=== PATIENT | female | born 1990 | race Caucasian/White ===

== ENCOUNTER → 2020-10-30 07:53 | Outpatient (BNVA) | payer OTHER, SELFPAY | PROVIDERS: Visit Provider Physician Assistant | DX: M77.12 Lateral epicondylitis, left elbow (principal) | CPT/HCPCS: 20551; 99202; J1020 ==

== ENCOUNTER 2020-11-13 09:00 | Outpatient (RCR) | payer OTHER, SELFPAY ==
--- NOTE | 2020-11-28 13:18 | MHC.OT.DC ---
[address] [phone] F: [phone] Occupational Therapy Discharge Note Provider: Marlin Means PA-C Diagnosis: Left elbow tendinopathy/radial tunnel syndrome Date of Evaluation: 11/06/20 Date of Discharge: 11/28/20 Treatments to Date: 2 Cancellations to Date: 1 No Shows to Date: 3 Discharge Status: Patient Elected to Stop Discharge Summary: Melly was seen in OT for initial assessment of left elbow pain, consistent w/ radial tunnel syndrome and possible upper limb nerve injury. She was given HEP and returned for one follow up visit reporting less pain today and demo'd good ROM through nerve glides. She has missed several appointments and we will be discharging at this time in accordance to our no-show/cancellation policy. Electronically Signed By: Vickie Serna OTR/L Reviewed/agree with student documentation: N/A Therapist: Please Sign and return to therapist, thank you for your referral.
== END 2020-11-28 13:19 | disposition home or self-care (01) ==
LOC: HO.OT 09:00
PROVIDERS: Visit Provider Physician Assistant
DX: M77.12 Lateral epicondylitis, left elbow (principal)
CPT/HCPCS: 97110; 97140; 97166

== ENCOUNTER 2022-02-06 11:41 | Emergency (ER) | payer OTHER, SELFPAY ==
[2022-02-06 12:02] VITALS: BP 145/97; PULSE 84; RESP 20; TEMP 36.7; O2SAT 100; BMI 20.9
--- NOTE | 2022-02-06 12:07 | ED.GENADULT ---
HPI - General Adult General Chief complaint: Abdominal Pain <JOEY Irvin Last Filed: 02/10/22 11:55> Stated complaint: abd pain, nauseous, dizzy <JOEY Irvin - Last Filed: 02/10/22 11:55> Time Seen by Provider: 02/06/22 16:37 <JOEY Irvin - Last Filed: 02/10/22 11:55> Source: patient and family <JOEY Amaya Last Filed: 02/06/22 16:47> Mode of arrival: ambulatory <JOEY Amaya - Last Filed: 02/06/22 16:47> Limitations: no limitations <JOEY Amaya Last Filed: 02/06/22 16:47> History of Present Illness HPI narrative: 32-year-old female with a past medical history of kidney stones presenting to the ED with nausea and lower abdominal cramping for the past 2-3 days worse today. Reports that she only had her menstrual period for 2 days and was light. She believes she may be . She denies any other symptoms complaints or concerns at this time. <JOEY Amaya - Last Filed: 02/06/22 16:47> MD complaint: Nausea and abdominal pain <JOEY Amaya Last Filed: 02/06/22 16:47> Onset (ago): day(s) ( 2 days) <JOEY Amaya Last Filed: 02/06/22 16:47> Related Data Home medications: Previous Rx's Medication Instructions Recorded docusate sodium 100 mg capsule 100 mg PO BID PRN Constipation #14 02/06/22 (Colace) caps ondansetron HCl 4 mg tablet 4 mg PO Q8H #14 tabs 02/06/22 polyethylene glycol 3350 17 gram 17 g PO DAILY #14 ea 02/06/22 oral powder packet (Miralax) <JOEY Irvin Last Filed: 02/10/22 11:55> Allergies/adverse reactions: Allergies Allergy/AdvReac Type Severity Reaction Status Date / Time divalproex sodium Allergy Intermediate SEVERE Unverified 11/03/19 18:35 [From DEPAKOTE] HEADACHE adhesive tape [ADHESIVE TAPE] Allergy Unknown RASH Unverified 11/03/19 18:35 lactose [LACTOSE] Allergy Unknown DIARRHEA Unverified 11/03/19 18:35 morphine [MORPHINE] Allergy Unknown GI UPSET Unverified 11/03/19 18:35 Adhesive Bandages Allergy Unknown Uncoded 10/15/17 00:00 <JOEY Irvin - Last Filed: 02/10/22 11:55> Review of Systems Review of Systems: Constitutional : No Weight loss, No Fever, No Chills, No Night Sweats, No Fatigue, No Malaise ENT/Mouth : No Hearing loss, No Ear Pain, No Nasal Congestion, No Sinus Pain, No Hoarseness, No sore throat, No Rhinorrhea, No Swallowing Difficulty Eyes: No Eye Pain, No Swelling, No Redness, No Foreign Body, No Discharge, No Vision Changes Cardiovascular : No Chest Pain, No SOB, No Dyspnea on Exertion, No Orthopnea, No Edema, No Palpitations Respiratory : No Cough, No Sputum, No Wheezing, No Smoke Exposure, No Dyspnea Gastrointestinal : + Nausea, No Vomiting, No Diarrhea, No Constipation, + abdominal Pain, No Hematochezia, No Melena Genitourinary : no irregular bleeding, No Dysuria, No Urinary Frequency, No Hematuria, No Urinary Incontinence, No Urgency, No Flank Pain, No Urinary Flow Changes, No Hesitancy Musculoskeletal : No joint pain, No Myalgias, No Joint Swelling Skin : No Skin Lesions, No rash Neuro : No Weakness, No Numbness, No Paresthesias, No Loss of Consciousness, No Dizziness, No Headache Psych : No Anxiety/Panic, No Depression, No SI/HI/AH/VH, No Social Issues, Heme/Lymph: No Bruising, No Bleeding,No Lymphadenopathy Endocrine : No Polyuria, No Polydipsia, No Temperature Intolerance <JOEY Amaya - Last Filed: 02/06/22 16:47> Yes all other systems are reviewed and are negative <JOEY Amaya Last Filed: 02/06/22 16:47> [facility] Past Medical History Attestation statement: The following information was validated with the patient. 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 <JOEY Irvin - Last Filed: 02/10/22 11:55> Physical Exam ED Vital Signs: Vital Signs - 24 hr 02/06/22 12:02 Temperature 98.1 F Pulse Rate 84 Respiratory Rate 20 Blood Pressure 145/97 H Pulse Oximetry 100 Oxygen Delivery Method Room Air BMI result Body Mass Index 20.9 <JOEY Irvin - Last Filed: 02/10/22 11:55> Vital Signs - 24 hr 02/06/22 12:02 Temperature 98.1 F Pulse Rate 84 Respiratory Rate 20 Blood Pressure 145/97 H Pulse Oximetry 100 Oxygen Delivery Method Room Air BMI result Body Mass Index 20.9 Vital signs have been reviewed and all within normal limits <JOEY Amaya - Last Filed: 02/06/22 16:47> Appearance: Alert. Oriented X3. No acute distress. Head: Normal external exam. Normocephalic. Eyes: PERRLA. EOMI. Conjunctiva and sclera normal. Eyelids normal. ENT: Pharynx normal. Uvula midline. Moist mucous membranes. No trismus noted. No drooling noted. No muffled voice noted. Neck: Normal inspection. Neck supple. FROM. No adenopathy. No meningeal signs. CVS: Normal heart rate and rhythm. Heart sound normal. No murmurs noted. Pulses normal throughout. Respiratory: No respiratory distress. Painless inspiration. Breath sounds normal. No wheezes/rales/rhonchi noted. Chest nontender. No accessory muscle usage noted or decreased air movement noted. Abdomen: Soft and and mild tenderness palpation to suprapubic area. Nondistended. No guarding. No rigidity. Bowel sounds normal in all 4 quadrants. No distention noted. No organomegaly noted. No visible injury noted. No rebound tenderness. Negative Rovsing sign. Negative obturator's sign. Negative psoas sign. Negative Chandra sign. Back: No CVA tenderness. Full range of motion noted. Skin: Skin warm and dry. Normal skin color. Normal skin turgor. No rashes/lesions/lacerations noted. Extremities: Extremities exhibit normal range of motion. Extremities nontender. Neuro: Oriented X 3. No motor deficit. No sensory deficit. Reflexes normal. Normal steady gait. CN's II-XII intact bilaterally? <JOEY Amaya - Last Filed: 02/06/22 16:47> Course Course Course Narrative: RMAlec; 32 female presents to the ED for lower abdominal cramping with nausea. Patient states she had only 2 days of bleeding. Patient states in the morning feeling nauseous. Patient believes she may be . Vital signs stable. labs ordered. <JOEY Irvin - Last Filed: 02/10/22 11:55> Reevaluation(s) Reevaluation #1: Labs obtained and all labs within normal limits. Patient negative for by blood and urine. UA within normal limits no evidence of UTI. Patient negative for COVID/RSV/ flu. CT scan show kidney stones although still in the kidneys therefore this is not causing the patient's pain and some mild constipation otherwise no other acute processes. Therefore will DC home with symptomatic treatment instructions return if any new or worsening symptoms follow up with primary care provider. Patient understands agrees with this plan. <JOEY Amaya - Last Filed: 02/06/22 16:47> Time: 16:46 <JOEY Amaya - Last Filed: 02/06/22 16:47> Medical Decision Making Lab Data MDM Lab Attestation statement: I reviewed the patient's lab results. <JOEY Amaya - Last Filed: 02/06/22 16:47> Result Diagrams: : 02/06/22 12:28 02/06/22 12:28 <JOEY Irvin - Last Filed: 02/10/22 11:55> Labs: Lab Results 02/06/22 02/06/22 02/06/22 Range/Units 12:28 12:28 12:28 WBC 8.4 (4.8-10.8) X10*3/uL RBC 4.24 (4.20-5.50) X10*6/uL Hgb 13.1 (12.0-16.0) g/dl Hct 40.2 (37.0-47.0) % MCV 94.8 (80.0-98.0) fL MCH 30.9 (27.0-33.0) pg MCHC 32.6 (31.0-35.0) g/dl RDW 13.6 (11.0-16.0) % Plt Count 261 (160-400) X10*3/uL MPV 9.9 (9.4-12.3) fL Immature Gran % (Auto) 0.4 (0.0-0.4) % Neut % (Auto) 65.1 (45-73) % Lymph % (Auto) 25.1 (20-40) % Love % (Auto) 7.2 (2-11) % Eos % (Auto) 1.7 (0-4) % Baso % (Auto) 0.5 (0-2) % Lymph # (Auto) 2.1 (1.2-4.9) X10*3/uL Love # (Auto) 0.6 (0.1-1.2) X10*3/uL Eos # (Auto) 0.1 (0.0-0.4) X10*3/uL Baso # (Auto) 0.0 (0.0-0.2) X10*3/uL Abs Immat Gran (auto) 0.03 (0.00-0.03) X10*3/uL Absolute Neuts (auto) 5.5 (2.0-8.3) x10*3/uL Absolute Nucleated RBC 0.000 (0.0-0.012) X10*3/uL Nucleated RBC % (auto) 0.0 (0.0-0.2) /100WBC PT 11.0 (10.0-13.1) SEC INR 1.0 (0.9-1.1) APTT 29.9 (26.0-36.4) SEC Sodium 140 (135-145) mmol/L Potassium 3.8 (3.3-5.1) mmol/L Chloride 104 (96-108) mmol/L Carbon Dioxide 26 (22-29) mmol/L Anion Gap 14 (12-20) BUN 16 (9-16) mg/dL Creatinine 0.75 (0.5-1.4) mg/dL Estim Creat Clear Calc 100.2 Estimated GFR > 60 Random Glucose 69 (60-115) mg/dL Calcium 9.6 (8.4-10.2) mg/dL Total Bilirubin 0.3 (0.0-1.0) mg/dL AST 16 (5-31) U/L ALT 19 (0-31) U/L Alkaline Phosphatase 53 (39-117) U/L Total Protein 7.0 (6.5-8.0) g/dL Albumin 4.2 (3.5-5.0) g/dL Beta HCG, Quant < 2 mIU/mL Urine Color Urine Appearance Urine pH (5.0-9.0) Ur Specific [place] (1.005-1.025) Urine Protein (Neg-Trace) mg/dL Urine Glucose (UA) (Negative) mg/dL Urine Ketones (Negative) mg/dL Urine Blood (Negative) Urine Nitrite (Negative) Ur Leukocyte Esterase (Negative) Urine Test (NEGATIVE) Influenza Type A (PCR) (Negative) Influenza Type B (PCR) (Negative) RSV RNA Qual (PCR) (Negative) SARS-CoV-2 RNA (RT-PCR) (Negative) Blood Type 02/06/22 02/06/22 02/06/22 Range/Units 12:28 12:28 15:45 WBC (4.8-10.8) X10*3/uL RBC (4.20-5.50) X10*6/uL Hgb (12.0-16.0) g/dl Hct (37.0-47.0) % MCV (80.0-98.0) fL MCH (27.0-33.0) pg MCHC (31.0-35.0) g/dl RDW (11.0-16.0) % Plt Count (160-400) X10*3/uL MPV (9.4-12.3) fL Immature Gran % (Auto) (0.0-0.4) % Neut % (Auto) (45-73) % Lymph % (Auto) (20-40) % Love % (Auto) (2-11) % Eos % (Auto) (0-4) % Baso % (Auto) (0-2) % Lymph # (Auto) (1.2-4.9) X10*3/uL Love # (Auto) (0.1-1.2) X10*3/uL Eos # (Auto) (0.0-0.4) X10*3/uL Baso # (Auto) (0.0-0.2) X10*3/uL Abs Immat Gran (auto) (0.00-0.03) X10*3/uL Absolute Neuts (auto) (2.0-8.3) x10*3/uL Absolute Nucleated RBC (0.0-0.012) X10*3/uL Nucleated RBC % (auto) (0.0-0.2) /100WBC PT (10.0-13.1) SEC INR (0.9-1.1) APTT (26.0-36.4) SEC Sodium (135-145) mmol/L Potassium (3.3-5.1) mmol/L Chloride (96-108) mmol/L Carbon Dioxide (22-29) mmol/L Anion Gap (12-20) BUN (9-16) mg/dL Creatinine (0.5-1.4) mg/dL Estim Creat Clear Calc Estimated GFR Random Glucose (60-115) mg/dL Calcium (8.4-10.2) mg/dL Total Bilirubin (0.0-1.0) mg/dL AST (5-31) U/L ALT (0-31) U/L Alkaline Phosphatase (39-117) U/L Total Protein (6.5-8.0) g/dL Albumin (3.5-5.0) g/dL Beta HCG, Quant mIU/mL Urine Color Yellow Urine Appearance Clear Urine pH 7.0 (5.0-9.0) Ur Specific [place] 1.010 (1.005-1.025) Urine Protein Negative (Neg-Trace) mg/dL Urine Glucose (UA) Negative (Negative) mg/dL Urine Ketones Negative (Negative) mg/dL Urine Blood Negative (Negative) Urine Nitrite Negative (Negative) Ur Leukocyte Esterase Negative (Negative) Urine Test (NEGATIVE) Influenza Type A (PCR) NEGATIVE (Negative) Influenza Type B (PCR) NEGATIVE (Negative) RSV RNA Qual (PCR) NEGATIVE (Negative) SARS-CoV-2 RNA (RT-PCR) NEGATIVE (Negative) Blood Type A Positive 02/06/22 Range/Units 15:45 WBC (4.8-10.8) X10*3/uL RBC (4.20-5.50) X10*6/uL Hgb (12.0-16.0) g/dl Hct (37.0-47.0) % MCV (80.0-98.0) fL MCH (27.0-33.0) pg MCHC (31.0-35.0) g/dl RDW (11.0-16.0) % Plt Count (160-400) X10*3/uL MPV (9.4-12.3) fL Immature Gran % (Auto) (0.0-0.4) % Neut % (Auto) (45-73) % Lymph % (Auto) (20-40) % Love % (Auto) (2-11) % Eos % (Auto) (0-4) % Baso % (Auto) (0-2) % Lymph # (Auto) (1.2-4.9) X10*3/uL Love # (Auto) (0.1-1.2) X10*3/uL Eos # (Auto) (0.0-0.4) X10*3/uL Baso # (Auto) (0.0-0.2) X10*3/uL Abs Immat Gran (auto) (0.00-0.03) X10*3/uL Absolute Neuts (auto) (2.0-8.3) x10*3/uL Absolute Nucleated RBC (0.0-0.012) X10*3/uL Nucleated RBC % (auto) (0.0-0.2) /100WBC PT (10.0-13.1) SEC INR (0.9-1.1) APTT (26.0-36.4) SEC Sodium (135-145) mmol/L Potassium (3.3-5.1) mmol/L Chloride (96-108) mmol/L Carbon Dioxide (22-29) mmol/L Anion Gap (12-20) BUN (9-16) mg/dL Creatinine (0.5-1.4) mg/dL Estim Creat Clear Calc Estimated GFR Random Glucose (60-115) mg/dL Calcium (8.4-10.2) mg/dL Total Bilirubin (0.0-1.0) mg/dL AST (5-31) U/L ALT (0-31) U/L Alkaline Phosphatase (39-117) U/L Total Protein (6.5-8.0) g/dL Albumin (3.5-5.0) g/dL Beta HCG, Quant mIU/mL Urine Color Urine Appearance Urine pH (5.0-9.0) Ur Specific [place] (1.005-1.025) Urine Protein (Neg-Trace) mg/dL Urine Glucose (UA) (Negative) mg/dL Urine Ketones (Negative) mg/dL Urine Blood (Negative) Urine Nitrite (Negative) Ur Leukocyte Esterase (Negative) Urine Test NEGATIVE (NEGATIVE) Influenza Type A (PCR) (Negative) Influenza Type B (PCR) (Negative) RSV RNA Qual (PCR) (Negative) SARS-CoV-2 RNA (RT-PCR) (Negative) Blood Type <JOEY Ivrin - Last Filed: 02/10/22 11:55> Lab Results 02/06/22 02/06/22 02/06/22 Range/Units 12:28 12:28 12:28 WBC 8.4 (4.8-10.8) X10*3/uL RBC 4.24 (4.20-5.50) X10*6/uL Hgb 13.1 (12.0-16.0) g/dl Hct 40.2 (37.0-47.0) % MCV 94.8 (80.0-98.0) fL MCH 30.9 (27.0-33.0) pg MCHC 32.6 (31.0-35.0) g/dl RDW 13.6 (11.0-16.0) % Plt Count 261 (160-400) X10*3/uL MPV 9.9 (9.4-12.3) fL Immature Gran % (Auto) 0.4 (0.0-0.4) % Neut % (Auto) 65.1 (45-73) % Lymph % (Auto) 25.1 (20-40) % Love % (Auto) 7.2 (2-11) % Eos % (Auto) 1.7 (0-4) % Baso % (Auto) 0.5 (0-2) % Lymph # (Auto) 2.1 (1.2-4.9) X10*3/uL Love # (Auto) 0.6 (0.1-1.2) X10*3/uL Eos # (Auto) 0.1 (0.0-0.4) X10*3/uL Baso # (Auto) 0.0 (0.0-0.2) X10*3/uL Abs Immat Gran (auto) 0.03 (0.00-0.03) X10*3/uL Absolute Neuts (auto) 5.5 (2.0-8.3) x10*3/uL Absolute Nucleated RBC 0.000 (0.0-0.012) X10*3/uL Nucleated RBC % (auto) 0.0 (0.0-0.2) /100WBC PT 11.0 (10.0-13.1) SEC INR 1.0 (0.9-1.1) APTT 29.9 (26.0-36.4) SEC Sodium 140 (135-145) mmol/L Potassium 3.8 (3.3-5.1) mmol/L Chloride 104 (96-108) mmol/L Carbon Dioxide 26 (22-29) mmol/L Anion Gap 14 (12-20) BUN 16 (9-16) mg/dL Creatinine 0.75 (0.5-1.4) mg/dL Estim Creat Clear Calc 100.2 Estimated GFR > 60 Random Glucose 69 (60-115) mg/dL Calcium 9.6 (8.4-10.2) mg/dL Total Bilirubin 0.3 (0.0-1.0) mg/dL AST 16 (5-31) U/L ALT 19 (0-31) U/L Alkaline Phosphatase 53 (39-117) U/L Total Protein 7.0 (6.5-8.0) g/dL Albumin 4.2 (3.5-5.0) g/dL Beta HCG, Quant < 2 mIU/mL Urine Color Urine Appearance Urine pH (5.0-9.0) Ur Specific [place] (1.005-1.025) Urine Protein (Neg-Trace) mg/dL Urine Glucose (UA) (Negative) mg/dL Urine Ketones (Negative) mg/dL Urine Blood (Negative) Urine Nitrite (Negative) Ur Leukocyte Esterase (Negative) Urine Test (NEGATIVE) Influenza Type A (PCR) (Negative) Influenza Type B (PCR) (Negative) RSV RNA Qual (PCR) (Negative) SARS-CoV-2 RNA (RT-PCR) (Negative) Blood Type 02/06/22 02/06/22 02/06/22 Range/Units 12:28 12:28 15:45 WBC (4.8-10.8) X10*3/uL RBC (4.20-5.50) X10*6/uL Hgb (12.0-16.0) g/dl Hct (37.0-47.0) % MCV (80.0-98.0) fL MCH (27.0-33.0) pg MCHC (31.0-35.0) g/dl RDW (11.0-16.0) % Plt Count (160-400) X10*3/uL MPV (9.4-12.3) fL Immature Gran % (Auto) (0.0-0.4) % Neut % (Auto) (45-73) % Lymph % (Auto) (20-40) % Love % (Auto) (2-11) % Eos % (Auto) (0-4) % Baso % (Auto) (0-2) % Lymph # (Auto) (1.2-4.9) X10*3/uL Love # (Auto) (0.1-1.2) X10*3/uL Eos # (Auto) (0.0-0.4) X10*3/uL Baso # (Auto) (0.0-0.2) X10*3/uL Abs Immat Gran (auto) (0.00-0.03) X10*3/uL Absolute Neuts (auto) (2.0-8.3) x10*3/uL Absolute Nucleated RBC (0.0-0.012) X10*3/uL Nucleated RBC % (auto) (0.0-0.2) /100WBC PT (10.0-13.1) SEC INR (0.9-1.1) APTT (26.0-36.4) SEC Sodium (135-145) mmol/L Potassium (3.3-5.1) mmol/L Chloride (96-108) mmol/L Carbon Dioxide (22-29) mmol/L Anion Gap (12-20) BUN (9-16) mg/dL Creatinine (0.5-1.4) mg/dL Estim Creat Clear Calc Estimated GFR Random Glucose (60-115) mg/dL Calcium (8.4-10.2) mg/dL Total Bilirubin (0.0-1.0) mg/dL AST (5-31) U/L ALT (0-31) U/L Alkaline Phosphatase (39-117) U/L Total Protein (6.5-8.0) g/dL Albumin (3.5-5.0) g/dL Beta HCG, Quant mIU/mL Urine Color Yellow Urine Appearance Clear Urine pH 7.0 (5.0-9.0) Ur Specific [place] 1.010 (1.005-1.025) Urine Protein Negative (Neg-Trace) mg/dL Urine Glucose (UA) Negative (Negative) mg/dL Urine Ketones Negative (Negative) mg/dL Urine Blood Negative (Negative) Urine Nitrite Negative (Negative) Ur Leukocyte Esterase Negative (Negative) Urine Test (NEGATIVE) Influenza Type A (PCR) NEGATIVE (Negative) Influenza Type B (PCR) NEGATIVE (Negative) RSV RNA Qual (PCR) NEGATIVE (Negative) SARS-CoV-2 RNA (RT-PCR) NEGATIVE (Negative) Blood Type A Positive 02/06/22 Range/Units 15:45 WBC (4.8-10.8) X10*3/uL RBC (4.20-5.50) X10*6/uL Hgb (12.0-16.0) g/dl Hct (37.0-47.0) % MCV (80.0-98.0) fL MCH (27.0-33.0) pg MCHC (31.0-35.0) g/dl RDW (11.0-16.0) % Plt Count (160-400) X10*3/uL MPV (9.4-12.3) fL Immature Gran % (Auto) (0.0-0.4) % Neut % (Auto) (45-73) % Lymph % (Auto) (20-40) % Love % (Auto) (2-11) % Eos % (Auto) (0-4) % Baso % (Auto) (0-2) % Lymph # (Auto) (1.2-4.9) X10*3/uL Love # (Auto) (0.1-1.2) X10*3/uL Eos # (Auto) (0.0-0.4) X10*3/uL Baso # (Auto) (0.0-0.2) X10*3/uL Abs Immat Gran (auto) (0.00-0.03) X10*3/uL Absolute Neuts (auto) (2.0-8.3) x10*3/uL Absolute Nucleated RBC (0.0-0.012) X10*3/uL Nucleated RBC % (auto) (0.0-0.2) /100WBC PT (10.0-13.1) SEC INR (0.9-1.1) APTT (26.0-36.4) SEC Sodium (135-145) mmol/L Potassium (3.3-5.1) mmol/L Chloride (96-108) mmol/L Carbon Dioxide (22-29) mmol/L Anion Gap (12-20) BUN (9-16) mg/dL Creatinine (0.5-1.4) mg/dL Estim Creat Clear Calc Estimated GFR Random Glucose (60-115) mg/dL Calcium (8.4-10.2) mg/dL Total Bilirubin (0.0-1.0) mg/dL AST (5-31) U/L ALT (0-31) U/L Alkaline Phosphatase (39-117) U/L Total Protein (6.5-8.0) g/dL Albumin (3.5-5.0) g/dL Beta HCG, Quant mIU/mL Urine Color Urine Appearance Urine pH (5.0-9.0) Ur Specific [place] (1.005-1.025) Urine Protein (Neg-Trace) mg/dL Urine Glucose (UA) (Negative) mg/dL Urine Ketones (Negative) mg/dL Urine Blood (Negative) Urine Nitrite (Negative) Ur Leukocyte Esterase (Negative) Urine Test NEGATIVE (NEGATIVE) Influenza Type A (PCR) (Negative) Influenza Type B (PCR) (Negative) RSV RNA Qual (PCR) (Negative) SARS-CoV-2 RNA (RT-PCR) (Negative) Blood Type <JOEY Amaya Last Filed: 02/06/22 16:47> Independent Interpretation Interpretation: CT scan abdomen pelvis without IV contrast FINDINGS: LUNG BASES: The visualized lung bases are unremarkable.? LIVER, GALLBLADDER, AND BILIARY TREE: No hepatic abnormality. Status post cholecystectomy. PANCREAS: Unremarkable.? SPLEEN: Unremarkable.? ADRENAL GLANDS: Unremarkable.? KIDNEYS AND URETERS: Punctate nonobstructing intrarenal calculi are seen bilaterally. No hydroureteronephrosis. BLADDER: Unremarkable.? GASTROINTESTINAL TRACT: The stomach and small bowel are unremarkable. The cecum extends inferomedially into the inferior pelvis positioned and it superior to the urinary bladder. Surgical clips are seen at the cecal base without abnormality. The appendix is not visualized. Mild to moderate stool seen throughout the colon distally to the rectum, more pronounced proximally. ABDOMINAL WALL: No significant hernia is appreciated.? LYMPH NODES: No lymphadenopathy. VASCULAR: Unremarkable. PELVIC VISCERA: Mildly retroverted as well as retroflexed uterus. No adnexal abnormality.? OSSEOUS STRUCTURES: Unremarkable.? CT/CT abdomen pelvis wo IV con IMPRESSION: 1.? No acute intra-abdominal/pelvic abnormality to explain the patient's symptoms. 2.? Mild to moderate colonic stool burden without other significant abnormality. Correlate with stool output. 3.? Punctate nonobstructing intrarenal calculi bilaterally. ? ? ? <JOEY Amaya - Last Filed: 02/06/22 16:47> Discharge Plan Discharge Clinical Impression: Constipation, Nausea <JOEY Irvin Last Filed: 02/10/22 11:55> Patient Disposition: Home, Self-Care <JOEY Irvin Last Filed: 02/10/22 11:55> Instructions: Constipation (ED) <JOEY Irvin Last Filed: 02/10/22 11:55> Prescriptions: New ondansetron HCl 4 mg tablet 4 mg PO Q8H Qty: 14 0RF docusate sodium [Colace] 100 mg capsule 100 mg PO BID PRN (Reason: Constipation) Qty: 14 0RF polyethylene glycol 3350 [Miralax] 17 gram powder in packet 17 g PO DAILY Qty: 14 0RF <JOEY Irvin - Last Filed: 02/10/22 11:55> Referrals: Physician,Unknown J [Primary Care Provider] - ( follow-up with her primary care provider as needed) <JOEY Irvin - Last Filed: 02/10/22 11:55> Interventions: ED Discharge Assessment Last Done: 02/06/22 16:48 <JOEY Irvin - Last Filed: 02/10/22 11:55> Discharge Date/Time: 02/06/22 16:49 <JOEY Irvin - Last Filed: 02/10/22 11:55>
[2022-02-06 12:40] LABS: MANUAL DIFF FLAG NO
[2022-02-06 12:42] LABS: Basophils Percent Auto 0.5 % (0-2); Eosinophils Absolute Auto 0.1 X10*3/uL (0.0-0.4); Eosinophils Percent Auto 1.7 % (0-4); Hematocrit 40.2 % (37.0-47.0); Hemoglobin 13.1 g/dl (12.0-16.0); Imm Gran Abs Auto 0.03 X10*3/uL (0.00-0.03); Imm Gran Pct Auto 0.4 % (0.0-0.4); Lymphocytes Absolute Auto 2.1 X10*3/uL (1.2-4.9); Lymphocytes Percent Auto 25.1 % (20-40); Mean Corpuscular HGB Conc 32.6 g/dl (31.0-35.0); Mean Corpuscular Hemoglobin 30.9 pg (27.0-33.0); Mean Corpuscular Volume 94.8 fL (80.0-98.0); Mean Platelet Volume 9.9 fL (9.4-12.3); Monocytes Absolute Auto 0.6 X10*3/uL (0.1-1.2); Monocytes Percent Auto 7.2 % (2-11); Neutrophils Absolute Auto 5.5 x10*3/uL (2.0-8.3); Neutrophils Percent Auto 65.1 % (45-73); Platelet Count 261 X10*3/uL (160-400); Red Blood Count 4.24 X10*6/uL (4.20-5.50); Red Cell Distribution Width 13.6 % (11.0-16.0); White Blood Count 8.4 X10*3/uL (4.8-10.8)
[2022-02-06 12:50] LABS: Partial Thromboplastin Time 29.9 SEC (26.0-36.4)
[2022-02-06 13:11] LABS: Alanine Aminotransferase 19 U/L (0-31); Albumin Level 4.2 g/dL (3.5-5.0); Alkaline Phosphatase 53 U/L (39-117); Anion Gap 14 (12-20); Aspartate Amino Transferase 16 U/L (5-31); Bilirubin Total 0.3 mg/dL (0.0-1.0); Blood Urea Nitrogen 16 mg/dL (9-16); Calcium 9.6 mg/dL (8.4-10.2); Carbon Dioxide 26 mmol/L (22-29); Chloride 104 mmol/L (96-108); Creatinine Clr Calc Pharmacy 100.2; Estimated Glomerular Filt Rate > 60; Glucose Random 69 mg/dL (60-115); HCG Quantitative < 2 mIU/mL; Potassium 3.8 mmol/L (3.3-5.1); Sodium 140 mmol/L (135-145)
[2022-02-06 13:20] LABS: Influenza A PCR NEGATIVE (Negative); Influenza B PCR NEGATIVE (Negative); Resp Syncy Virus RNA Qual PCR NEGATIVE (Negative); SARS COV2 PCR INHOUSE NEGATIVE (Negative)
[2022-02-06 16:03] LABS: Appearance Urine Clear; Color Urine Yellow; Glucose Urine UA Negative (Negative); Leukocyte Esterase Urine Negative (Negative); Nitrite Urine Negative (Negative); Urine Blood Negative (Negative); Urine Ketones Negative (Negative); Urine Protein Negative (Neg-Trace)
[2022-02-06 16:05] LABS: UPreg QC Valid YES; Urine Pregnancy NEGATIVE (NEGATIVE)
== END 2022-02-06 16:49 | disposition home or self-care (01) ==
PROVIDERS: Physician Assistant; Emergency Provider Emergency Medicine
DX: K59.00 Constipation, unspecified (principal); R11.0 Nausea; R10.30 Lower abdominal pain, unspecified; Z20.828 Contact with and (suspected) exposure to other viral communicable diseases; Z20.822 Contact with and (suspected) exposure to COVID-19
CPT/HCPCS: 0241U; 36415; 74176; 80053; 81003; 81025; 84702; 85025; 85610; 85730; 86900; 86901; 99283; 99284

== ENCOUNTER 2022-02-17 16:48 | Emergency (ER) | payer OTHER, SELFPAY ==
--- NOTE | ~2022-02-17 | XR_ITS ---
EXAMINATION: XR HAND, RIGHT CLINICAL INFORMATION: Pain 1 week. COMPARISON: None TECHNIQUE: 3 views. of the right hand. FINDINGS: The bones and soft tissues are normal. No fracture. Alignment is anatomic. Joint spaces are maintained. No erosions or soft tissue calcifications. XR/XR hand RT min 3V IMPRESSION: Normal right hand.
[2022-02-17 18:13] VITALS: BP 137/84; PULSE 59; RESP 14; TEMP 36.1; O2SAT 100; BMI 20.9
--- NOTE | 2022-02-17 18:13 | ED_ITS ---
HPI - Extremity Injury (Upper) General Chief Complaint: Extremity Injury, Upper <JOEY Amaya - Last Filed: 02/17/22 18:15> Stated Complaint: right hand pain <JOEY Amaya Last Filed: 02/17/22 18:15> Time Seen by Provider: 02/17/22 20:34 <JOEY Amaya - Last Filed: 02/17/22 18:15> Source: patient <JOEY Araiza - Last Filed: 02/17/22 21:31> Mode of arrival: ambulatory <JOEY Araiza Last Filed: 02/17/22 21:31> Limitations: no limitations <JOEY Araiza Last Filed: 02/17/22 21:31> History of Present Illness HPI narrative: This is a 32-year-old female presenting to the emergency department with complaints of right wrist pain/hand pain times a week worsening resolving. Patient tells me that a week ago she decided to do closed hand pushups and since then she has been experiencing severe pain to her right wrist worse with movement better at rest. She reports prior to pushups she punched something w/ her right hand. Denies numbness, tingling denies previous injuries to that wrist. <JOEY Araiza Last Filed: 02/17/22 21:31> Related Data Home Medications: Previous Rx's Medication Instructions Recorded docusate sodium 100 mg capsule 100 mg PO BID PRN Constipation #14 02/06/22 (Colace) caps ondansetron HCl 4 mg tablet 4 mg PO Q8H #14 tabs 02/06/22 polyethylene glycol 3350 17 gram 17 g PO DAILY #14 ea 02/06/22 oral powder packet (Miralax) ketorolac 10 mg tablet 10 mg PO TID PRN pain 5 days #15 02/17/22 tabs <JOEY Amaya Last Filed: 02/17/22 18:15> Allergies/Adverse Reactions: Allergies Allergy/AdvReac Type Severity Reaction Status Date / Time divalproex sodium Allergy Intermediate SEVERE Unverified 11/03/19 18:35 [From DEPAKOTE] HEADACHE adhesive tape [ADHESIVE TAPE] Allergy Unknown RASH Unverified 11/03/19 18:35 lactose [LACTOSE] Allergy Unknown DIARRHEA Unverified 11/03/19 18:35 morphine [MORPHINE] Allergy Unknown GI UPSET Unverified 11/03/19 18:35 Adhesive Bandages Allergy Unknown Uncoded 10/15/17 00:00 <JOEY Amaya - Last Filed: 02/17/22 18:15> Review of Systems Review of Systems: Constitutional : No Weight loss, No Fever, No Chills, No Fatigue, No Malaise ENT/Mouth : No sore throat, No Rhinorrhea Eyes: No Eye Pain, No Swelling, No Redness Cardiovascular : No Chest Pain, No SOB, No Dyspnea on Exertion, No Orthopnea, No Edema, No Palpitations Respiratory : No Cough, No Sputum, No Wheezing Gastrointestinal : No Nausea, No Vomiting, No Diarrhea, No Constipation, No abdominal Pain, No Hematochezia, No Melena Genitourinary : No Dysuria, No Urinary Frequency, No Hematuria, Musculoskeletal : + joint pain, No Myalgias, No Joint Swelling Skin : No Skin Lesions, No rash Neuro : No Weakness, No Numbness, No Dizziness, No Headache Psych : No Anxiety/Panic, No Depression All other systems reviewed and are negative <JOEY Araiza - Last Filed: 02/17/22 21:31> Yes all other systems are reviewed and are negative <JOEY Araiza - Last Filed: 02/17/22 21:31> [facility] Past Medical History Attestation statement: The following information was validated with the patient. 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 <JOEY Araiza - Last Filed: 02/17/22 21:31> Appearance: Alert.? Oriented X3.? No acute distress.? Head: Normocephalic, atraumatic, no step-offs or deformities Eyes: Pupils equal, round and reactive to light.? ENT: Pharynx normal.? Neck: Normal inspection.? Neck supple.? CVS: Normal heart rate and rhythm.? Pulses normal.? Respiratory: No respiratory distress.? Breath sounds normal.? Abdomen: Soft and nontender.? Skin: Skin warm and dry.? Normal skin color.? Normal skin turgor.? Extremities: No lower extremity edema.? No calf ttp. 5/5 strength to bilateral upper and lower extremities full range of motion to bilateral wrists. 2+ radial pulses equal bilateral. Normal ROM to b/l wrist and UE digits pain free. No wrist drop. Normal sensation to bl UE. Normal cap refil equal and b/l. Neuro: Oriented X 3.? No motor deficit.? No sensory deficit. CN 2-12 intact <JOEY Araiza - Last Filed: 02/17/22 21:31> Course Course Course Narrative: RME-18:14PM - 32-year-old female presenting to the ER with complaints of right hand pain radiating to her right wrist for the past week after she was doing pushups using her fist. Denies any other symptoms. Plan: X-ray of right hand ordered at this time. Patient will be evaluated in [facility]. <JOEY Amaya - Last Filed: 02/17/22 18:15> Reevaluation(s) Reevaluation #1: After interviewing patient she now admits that she punched a wall a little over a week ago and then did pushups and pushups made the pain worse. She is now telling me that the pain is mostly throughout her knuckles of the right hand. Patient is stating she has to leave because her ride is here and she can no longer weight. Will give Toradol for pain, splint for hand/wrist. Advised to follow-up with orthopedic team. Will call her if anything is significantly abnormal. <JOEY Araiza - Last Filed: 02/17/22 21:31> Time: 21:27 <JOEY Araiza - Last Filed: 02/17/22 21:31> Medical Decision Making Medical Decision Making [facility] Narrative: 3 32-year-old female presents with right hand and wrist pain status post doing pushups now complaining of pain to wrist not resolving for the past week. Physical exam benign. Likely sprain/strain. Unlikely fracture, dislocation. No signs of neurovascular injury. Plan is to review imaging. <JOEY Araiza - Last Filed: 02/17/22 21:31> Differential Diagnosis Differential Diagnoses: The differential diagnosis associated with the presentation includes <JOEY Araiza Last Filed: 02/17/22 21:31> Likely sprain/strain. Unlikely fracture, dislocation. No signs of neurovascular injury. <JOEY Araiza Last Filed: 02/17/22 21:31> Admission/Observation Consideration of admission/observation: Escalation of care including admission/observation considered <JOEY Araiza Last Filed: 02/17/22 21:31> Not indicate <JOEY Araiza Last Filed: 02/17/22 21:31> Independent Interpretation I performed an independent interpretation of an: Plain X-Ray (Normal right wrist.) <JOEY Araiza - Last Filed: 02/17/22 21:31> Radiology Impression Discussion of test interpretation with radiology: I have reviewed the radiologist's reading. <JOEY Araiza - Last Filed: 02/17/22 21:31> Independent Historian Clinical information obtained from an independent historian. History obtained from or confirmed by: Other (self ) <JOEY Araiza - Last Filed: 02/17/22 21:31> External Record Review External record reviewed: Office record <JOEY Araiza - Last Filed: 02/17/22 21:31> Core Measures AMI core measures followed: Yes <JOEY Araiza - Last Filed: 02/17/22 21:31> Measure exclusions: not indicated <JOEY Araiza - Last Filed: 02/17/22 21:31> Critical Care Time Critical Care Time Critical Care Time: No <JOEY Araiza - Last Filed: 02/17/22 21:31> Discharge Plan Discharge Clinical Impression: Pain in wrist <JOEY Amaya - Last Filed: 02/17/22 18:15> Patient Disposition: Home, Self-Care <JOEY Amaya - Last Filed: 02/17/22 18:15> Instructions: Wrist Injury (ED) <JOEY Amaya - Last Filed: 02/17/22 18:15> Additional Instructions: Take your medications as prescribed. If you were prescribed antibiotics today, it is important that you take your medication to their entirety, do not skip any doses, do not finish them early. Follow-up with your primary care provider this week. Follow-up with orthopedics if pain persists Return to the emergency department with new or worsening symptoms. Such as fevers, chills, chest pain, shortness of breath, nausea, vomiting, dizziness, headache, vision changes, lethargy In case of emergency call 911 Wear your splint as instructed. Toradol has been sent to her pharmacy, please take this as prescribed do not take this with any other anti-inflammatory medications/NSAID, do not take with ibuprofen, alcohol. Side effects include increased risk for bleeding and possible kidney injury. <JOEY Amaya - Last Filed: 02/17/22 18:15> Prescriptions: New ketorolac 10 mg tablet 10 mg PO TID PRN (Reason: pain) 5 Days Qty: 15 0RF Rx Instructions: Tolerated IM in the department No Action ondansetron HCl 4 mg tablet 4 mg PO Q8H Qty: 14 0RF docusate sodium [Colace] 100 mg capsule 100 mg PO BID PRN (Reason: Constipation) Qty: 14 0RF polyethylene glycol 3350 [Miralax] 17 gram powder in packet 17 g PO DAILY Qty: 14 0RF <JOEY Amaya - Last Filed: 02/17/22 18:15> Referrals: [facility] [Provider Group] - 1 week Physician,Unknown J [Primary Care Provider] - 2 days <JOEY Amaya - Last Filed: 02/17/22 18:15> Stand Alone Forms: Work/School Release <JOEY Amaya - Last Filed: 02/17/22 18:15>
[2022-02-17] MEDS: Ketorolac Tromethamine 15 MG/ML VIAL 30 MG IM (21:31)
== END 2022-02-17 22:06 | disposition home or self-care (01) ==
PROVIDERS: Emergency Provider Internal Medicine
DX: M79.641 Pain in right hand (principal)
CPT/HCPCS: 73130; 96372; 99283; 99284; J1885

== ENCOUNTER 2022-03-20 12:32 | Emergency (ER) | payer OTHER, SELFPAY ==
[2022-03-20 13:06] VITALS: BP 123/79; PULSE 84; RESP 18; TEMP 36.7; O2SAT 100; BMI 21.9
--- NOTE | 2022-03-20 13:06 | ED.FEMALEGU ---
HPI - Female Genitourinary General Chief complaint: General Medical <JOEY Bermudez - Last Filed: 03/20/22 13:08> Stated complaint: vaginal discharge, std check <JOEY Bermudez - Last Filed: 03/20/22 13:08> Time Seen by Provider: 03/20/22 16:31 <JOEY Bermudez - Last Filed: 03/20/22 13:08> History of Present Illness HPI Narrative: patient complains of vaginal discharge burning and itching, also wants to be checked for STD but denies any known exposure, denies any pelvic pain, no fever no vomiting <JOEY Caba - Last Filed: 05/04/22 13:03> Related Data Home medications: Previous Rx's Medication Instructions Recorded docusate sodium 100 mg capsule 100 mg PO BID PRN Constipation #14 02/06/22 (Colace) caps ondansetron HCl 4 mg tablet 4 mg PO Q8H #14 tabs 02/06/22 polyethylene glycol 3350 17 gram 17 g PO DAILY #14 ea 02/06/22 oral powder packet (Miralax) ketorolac 10 mg tablet 10 mg PO TID PRN pain 5 days #15 02/17/22 tabs metronidazole 500 mg tablet 500 mg PO BID 7 days #14 tabs 03/20/22 ondansetron 4 mg disintegrating 4 mg PO Q6H PRN nausea and 03/21/22 tablet vomiting #10 tabs <JOEY Bermudez - Last Filed: 03/20/22 13:08> Allergies/Adverse reactions: Allergies Allergy/AdvReac Type Severity Reaction Status Date / Time divalproex sodium Allergy Intermediate SEVERE Verified 03/20/22 13:06 [From DEPAKOTE] HEADACHE adhesive tape [ADHESIVE TAPE] Allergy Unknown RASH Verified 03/20/22 13:06 lactose [LACTOSE] Allergy Unknown DIARRHEA Verified 03/20/22 13:06 morphine [MORPHINE] Allergy Unknown GI UPSET Verified 03/20/22 13:06 Adhesive Bandages Allergy Unknown Unknown Uncoded 03/20/22 13:06 <JOEY Bermudez - Last Filed: 03/20/22 13:08> PMFSH Past Medical History Source: nursing notes reviewed <JOEY Caba - Last Filed: 05/04/22 13:03> Surgical History: Surgical History H/O right knee surgery History of appendectomy History of section <JOEY Bermudez - Last Filed: 03/20/22 13:08> Social History Social History: Social History Advance Directives: No Advance Directives Information Provided: No 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 <JOEY Bermudez - Last Filed: 03/20/22 13:08> Physical Exam Vital Signs: Vital Signs: Last Vital Signs Temp 98.0 F 03/20/22 16:32 Pulse 78 03/20/22 16:32 Resp 14 03/20/22 16:32 BP 113/69 03/20/22 16:32 Pulse Ox 98 03/20/22 16:32 O2 Del Method 03/20/22 16:32 BMI result Body Mass Index 21.9 <JOEY Bermudez - Last Filed: 03/20/22 13:08> Vital Signs: Last Vital Signs Temp 98.0 F 03/20/22 16:32 Pulse 78 03/20/22 16:32 Resp 14 03/20/22 16:32 BP 113/69 03/20/22 16:32 Pulse Ox 98 03/20/22 16:32 O2 Del Method 03/20/22 16:32 BMI result Body Mass Index 21.9 <JOEY Caba - Last Filed: 05/04/22 13:03> General appearance no acute distress The pharynx is clear no redness swelling or exudate voice normal membranes moist Neck is supple Respiratory no distress Abdomen soft nontender extremities no rash, full range of motion x4 <JOEY Caba - Last Filed: 05/04/22 13:03> Course Course Course Narrative: RME - 32 yo female presenting with white thick vaginal discharge for the last 5 days. Concerned for STI. Will get UA, Upreg, will need pelvic and swabs. <JOEY Bermudez - Last Filed: 03/20/22 13:08> RME - 32 yo female presenting with white thick vaginal discharge for the last 5 days. Concerned for STI. Will get UA, Upreg, will need pelvic and swabs. 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 <JOEY Caba - Last Filed: 05/04/22 13:03> Medications Administered Discontinued Medications Generic Name Dose Route Start Last Admin Trade Name Freq PRN Reason Stop Dose Admin Fluconazole 150 mg 03/20/22 18:00 03/20/22 18:08 Fluconazole 150 Mg Tablet PO 03/20/22 18:01 150 mg ONCE ONE Administration <JOEY Bermudez - Last Filed: 03/20/22 13:08> Medications Administered Discontinued Medications Generic Name Dose Route Start Last Admin Trade Name Freq PRN Reason Stop Dose Admin Fluconazole 150 mg 03/20/22 18:00 03/20/22 18:08 Fluconazole 150 Mg Tablet PO 03/20/22 18:01 150 mg ONCE ONE Administration <JOEY Caba - Last Filed: 05/04/22 13:03> Medical Decision Making Lab Data Labs: Lab Results 03/20/22 03/20/22 03/20/22 Range/Units 16:50 16:50 17:25 Urine Color Yellow Urine Appearance Turbid Urine pH 7.5 (5.0-9.0) Ur Specific [place] 1.020 (1.005-1.025) Urine Protein Negative (Neg-Trace) mg/dL Urine Glucose (UA) Negative (Negative) mg/dL Urine Ketones Negative (Negative) mg/dL Urine Blood Negative (Negative) Urine Nitrite Negative (Negative) Ur Leukocyte Esterase Trace H (Negative) Urine RBC 0-2 (0-2) /HPF Urine WBC 0-5 (0-5) /HPF Ur Squamous Epith Cells 3-5 (0-2) /HPF Urine Bacteria None Seen (None Seen) Hyaline Casts 0-2 (0-2) /LPF Urine Test NEGATIVE (NEGATIVE) Kelsie species DNA Chlam trachomat DNA PCR NOT DETECTED (Not Detect.) Gardnerella DNA Probe N.gonorrhoeae DNA (PCR) NOT DETECTED (Not Detect.) Trichomonas DNA Probe 03/20/22 03/20/22 Range/Units 17:25 17:25 Urine Color Urine Appearance Urine pH (5.0-9.0) Ur Specific [place] (1.005-1.025) Urine Protein (Neg-Trace) mg/dL Urine Glucose (UA) (Negative) mg/dL Urine Ketones (Negative) mg/dL Urine Blood (Negative) Urine Nitrite (Negative) Ur Leukocyte Esterase (Negative) Urine RBC (0-2) /HPF Urine WBC (0-5) /HPF Ur Squamous Epith Cells (0-2) /HPF Urine Bacteria (None Seen) Hyaline Casts (0-2) /LPF Urine Test (NEGATIVE) Kelsie species DNA Cancelled Negative Chlam trachomat DNA PCR (Not Detect.) Gardnerella DNA Probe Cancelled Positive A N.gonorrhoeae DNA (PCR) (Not Detect.) Trichomonas DNA Probe Cancelled Positive A <JOEY Bermudez - Last Filed: 03/20/22 13:08> Lab Results 03/20/22 03/20/22 03/20/22 Range/Units 16:50 16:50 17:25 Urine Color Yellow Urine Appearance Turbid Urine pH 7.5 (5.0-9.0) Ur Specific [place] 1.020 (1.005-1.025) Urine Protein Negative (Neg-Trace) mg/dL Urine Glucose (UA) Negative (Negative) mg/dL Urine Ketones Negative (Negative) mg/dL Urine Blood Negative (Negative) Urine Nitrite Negative (Negative) Ur Leukocyte Esterase Trace H (Negative) Urine RBC 0-2 (0-2) /HPF Urine WBC 0-5 (0-5) /HPF Ur Squamous Epith Cells 3-5 (0-2) /HPF Urine Bacteria None Seen (None Seen) Hyaline Casts 0-2 (0-2) /LPF Urine Test NEGATIVE (NEGATIVE) Kelsie species DNA Chlam trachomat DNA PCR NOT DETECTED (Not Detect.) Gardnerella DNA Probe N.gonorrhoeae DNA (PCR) NOT DETECTED (Not Detect.) Trichomonas DNA Probe 03/20/22 03/20/22 Range/Units 17:25 17:25 Urine Color Urine Appearance Urine pH (5.0-9.0) Ur Specific [place] (1.005-1.025) Urine Protein (Neg-Trace) mg/dL Urine Glucose (UA) (Negative) mg/dL Urine Ketones (Negative) mg/dL Urine Blood (Negative) Urine Nitrite (Negative) Ur Leukocyte Esterase (Negative) Urine RBC (0-2) /HPF Urine WBC (0-5) /HPF Ur Squamous Epith Cells (0-2) /HPF Urine Bacteria (None Seen) Hyaline Casts (0-2) /LPF Urine Test (NEGATIVE) Kelsie species DNA Cancelled Negative Chlam trachomat DNA PCR (Not Detect.) Gardnerella DNA Probe Cancelled Positive A N.gonorrhoeae DNA (PCR) (Not Detect.) Trichomonas DNA Probe Cancelled Positive A <JOEY Caba - Last Filed: 05/04/22 13:03> Discharge Plan Discharge Clinical Impression: Vaginal discharge <JOEY Bermudez - Last Filed: 03/20/22 13:08> Patient Disposition: Home, Self-Care <JOEY Bermudez - Last Filed: 03/20/22 13:08> Additional Instructions: we gave 1 dose of Diflucan in the emergency room in case this is yeast It is more likely to be bacterial vaginosis or Trichomonas so we are treating with Flagyl for 1 week When test results come back we will call you For further STD and HIV testing follow with [facility] or [facility] or your doctor or your OBGYN Return any time any concerns <JOEY Bermudez - Last Filed: 03/20/22 13:08> Prescriptions: New metronidazole 500 mg tablet 500 mg PO BID 7 Days Qty: 14 0RF No Action ondansetron HCl 4 mg tablet 4 mg PO Q8H Qty: 14 0RF docusate sodium [Colace] 100 mg capsule 100 mg PO BID PRN (Reason: Constipation) Qty: 14 0RF polyethylene glycol 3350 [Miralax] 17 gram powder in packet 17 g PO DAILY Qty: 14 0RF ketorolac 10 mg tablet 10 mg PO TID PRN (Reason: pain) 5 Days Qty: 15 0RF Rx Instructions: Tolerated IM in the department ondansetron 4 mg tablet,disintegrating 4 mg PO Q6H PRN (Reason: nausea and vomiting) Qty: 10 0RF <JOEY Bermudez - Last Filed: 03/20/22 13:08> Interventions: ED Discharge Assessment Last Done: 03/20/22 18:11 <JOEY Bermudez Last Filed: 03/20/22 13:08> Discharge Date/Time: 03/20/22 18:12 <JOEY Bermudez - Last Filed: 03/20/22 13:08>
[2022-03-20 16:32] VITALS: BP 113/69; PULSE 78; RESP 14; TEMP 36.7; O2SAT 98
[2022-03-20 17:05] LABS: Appearance Urine Turbid; Color Urine Yellow; Glucose Urine UA Negative (Negative); Leukocyte Esterase Urine Trace (Negative); Nitrite Urine Negative (Negative); PH 7.5 (5.0-9.0); UMIC TRIGGER UACC YES; Urine Blood Negative (Negative); Urine Ketones Negative (Negative); Urine Protein Negative (Neg-Trace)
[2022-03-20 17:07] LABS: UPreg QC Valid YES; Urine Pregnancy NEGATIVE (NEGATIVE)
[2022-03-20 17:10] LABS: Bacteria Urine None Seen (None Seen); Hyaline Casts Urine 0-2 /LPF (0-2); RBC Urine 0-2 /HPF (0-2); WBC Urine 0-5 /HPF (0-5)
[2022-03-20] MEDS: Fluconazole 150 MG TABLET PO (18:08)
[2022-03-21 09:18] LABS: BV Int Neg Control Negative (Negative); BV Int Pos Control Positive (Positive)
[2022-03-21 09:25] LABS: CT PCR NOT DETECTED (Not Detect.); NG PCR NOT DETECTED (Not Detect.)
== END 2022-03-20 18:12 | disposition home or self-care (01) ==
PROVIDERS: Physician Assistant; Physician Assistant Medical; Emergency Provider Emergency Medicine
DX: N89.8 Other specified noninflammatory disorders of vagina (principal); Z20.2 Contact with and (suspected) exposure to infections with a predominantly sexual mode of transmission
CPT/HCPCS: 0353U; 81001; 81003; 81025; 87480; 87510; 87660; 99283

== ENCOUNTER 2022-03-21 13:49 | Emergency (ER) | payer OTHER, SELFPAY ==
[2022-03-21 13:59] VITALS: BP 106/73; PULSE 100; RESP 16; TEMP 35.6; O2SAT 98; BMI 21.7
--- NOTE | 2022-03-21 13:59 | ED_ITS ---
HPI - General Adult General Chief complaint: Abdominal Pain <JOEY Marks Last Filed: 03/21/22 14:01> Stated complaint: Vomiting <JOEY Marks Last Filed: 03/21/22 14:01> Time Seen by Provider: 03/21/22 16:00 <JOEY Marks Last Filed: 03/21/22 14:01> History of Present Illness HPI narrative: patient complains of nausea and vomiting that started about 12 hours ago, there has been some mild diarrhea going on for several days, she has had some crampy abdominal pain but right now the main complaint is the vomiting She denies fever chills no burning with urination no frequency of urination no blood in stool or vomitus, no flank pain no back pain no dizziness or weakness no fainting or feeling faint <JOEY Caba - Last Filed: 03/21/22 17:44> Related Data Home medications: Previous Rx's Medication Instructions Recorded docusate sodium 100 mg capsule 100 mg PO BID PRN Constipation #14 02/06/22 (Colace) caps ondansetron HCl 4 mg tablet 4 mg PO Q8H #14 tabs 02/06/22 polyethylene glycol 3350 17 gram 17 g PO DAILY #14 ea 02/06/22 oral powder packet (Miralax) ketorolac 10 mg tablet 10 mg PO TID PRN pain 5 days #15 02/17/22 tabs metronidazole 500 mg tablet 500 mg PO BID 7 days #14 tabs 03/20/22 ondansetron 4 mg disintegrating 4 mg PO Q6H PRN nausea and 03/21/22 tablet vomiting #10 tabs <JOEY Marks Last Filed: 03/21/22 14:01> Allergies/adverse reactions: Allergies Allergy/AdvReac Type Severity Reaction Status Date / Time divalproex sodium Allergy Intermediate SEVERE Verified 03/20/22 13:06 [From DEPAKOTE] HEADACHE adhesive tape [ADHESIVE TAPE] Allergy Unknown RASH Verified 03/20/22 13:06 lactose [LACTOSE] Allergy Unknown DIARRHEA Verified 03/20/22 13:06 morphine [MORPHINE] Allergy Unknown GI UPSET Verified 03/20/22 13:06 Adhesive Bandages Allergy Unknown Unknown Uncoded 03/20/22 13:06 <JOEY Marks Last Filed: 03/21/22 14:01> ON LICENSE OF [facility] Past Medical History Source: nursing notes reviewed <JOEY Caba - Last Filed: 03/21/22 17:44> Surgical History: Surgical History H/O right knee surgery History of appendectomy History of section <JOEY Marks - Last Filed: 03/21/22 14:01> Social History Social History: Social History Advance Directives: No Advance Directives Information Provided: No 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 <JOEY Marks - Last Filed: 03/21/22 14:01> Physical Exam ED Vital Signs: Vital Signs - 24 hr 03/21/22 13:59 Temperature 96.1 F L Pulse Rate 100 Respiratory Rate 16 Blood Pressure 106/73 Pulse Oximetry 98 Oxygen Delivery Method Room Air BMI result Body Mass Index 21.7 <JOEY Marks - Last Filed: 03/21/22 14:01> Vital Signs - 24 hr 03/21/22 13:59 Temperature 96.1 F L Pulse Rate 100 Respiratory Rate 16 Blood Pressure 106/73 Pulse Oximetry 98 Oxygen Delivery Method Room Air BMI result Body Mass Index 21.7 <JOEY Caba - Last Filed: 03/21/22 17:44> general appearance is no acute distress The eyes anicteric no pallor The pharynx mucous membranes are moist The neck is supple Chest clear to auscultation bilateral Abdomen is soft and nontender The back no CVA tenderness Extremities full range of motion x4 Skin no rash <JOEY Caba - Last Filed: 03/21/22 17:44> Course Course Course Narrative: RME performed by Lidya Gongora PA-C. Patient is a 32 year old female presenting to the emergency department with vomiting. Patient states that she would also like her status to be evaluated by blood work, not urine. Labs ordered. Patient placed back in waiting room pending results and room availability. <JOEY Marks Last Filed: 03/21/22 14:01> RME performed by Lidya Gongora PA-C. Patient is a 32 year old female presenting to the emergency department with vomiting. Patient states that she would also like her status to be evaluated by blood work, not urine. L abs ordered. Patient placed back in waiting room pending results and room availability. A white count of 16 was noted which is likely from stress and vomiting, her vitals were normal with no fever or tachycardia, no likely bacterial infection Beta hCG was under 2- for , UA was negative for infection, but did show and mildly elevated specific gravity Patient was given an oral Zofran and was able to tolerate liquids and can treat her mild dehydration with oral fluids as nausea and vomiting have resolved with the Zofran Repeat abdominal exam was negative and well-appearing patient tolerating p.o. was discharged <JOEY Caba - Last Filed: 03/21/22 17:44> Medications Administered Discontinued Medications Generic Name Dose Route Start Last Admin Trade Name Freq PRN Reason Stop Dose Admin Ondansetron HCl 4 mg 03/21/22 16:17 03/21/22 16:23 Ondansetron Odt 4 Mg Tab.Rapdis TRANSLINGU 03/21/22 16:18 4 mg ONCE ONE Administration <JOEY Marks - Last Filed: 03/21/22 14:01> Medications Administered Discontinued Medications Generic Name Dose Route Start Last Admin Trade Name Freq PRN Reason Stop Dose Admin Ondansetron HCl 4 mg 03/21/22 16:17 03/21/22 16:23 Ondansetron Odt 4 Mg Tab.Rapdis TRANSLINGU 03/21/22 16:18 4 mg ONCE ONE Administration <JOEY Caba - Last Filed: 03/21/22 17:44> Medical Decision Making Lab Data MDM Lab Attestation statement: I reviewed the patient's lab results. <JOEY Caba - Last Filed: 03/21/22 17:44> Result Diagrams: 03/21/22 14:16 03/21/22 14:16 <JOEY Marks - Last Filed: 03/21/22 14:01> Labs: Lab Results 03/21/22 03/21/22 03/21/22 Range/Units 14:12 14:12 14:12 WBC (4.8-10.8) X10*3/uL RBC (4.20-5.50) X10*6/uL Hgb (12.0-16.0) g/dl Hct (37.0-47.0) % MCV (80.0-98.0) fL MCH (27.0-33.0) pg MCHC (31.0-35.0) g/dl RDW (11.0-16.0) % Plt Count (160-400) X10*3/uL MPV (9.4-12.3) fL Immature Gran % (Auto) (0.0-0.4) % Neut % (Auto) (45-73) % Lymph % (Auto) (20-40) % [place] % (Auto) (2-11) % Eos % (Auto) (0-4) % Baso % (Auto) (0-2) % Lymph # (Auto) (1.2-4.9) X10*3/uL [place] # (Auto) (0.1-1.2) X10*3/uL Eos # (Auto) (0.0-0.4) X10*3/uL Baso # (Auto) (0.0-0.2) X10*3/uL Abs Immat Gran (auto) (0.00-0.03) X10*3/uL Absolute Neuts (auto) (2.0-8.3) x10*3/uL Absolute Nucleated RBC (0.0-0.012) X10*3/uL Nucleated RBC % (auto) (0.0-0.2) /100WBC Smear Tech's Comments Sodium (135-145) mmol/L Potassium (3.3-5.1) mmol/L Chloride (96-108) mmol/L Carbon Dioxide (22-29) mmol/L Anion Gap (12-20) BUN (9-16) mg/dL Creatinine (0.5-1.4) mg/dL Estim Creat Clear Calc Estimated GFR Random Glucose (60-115) mg/dL Calcium (8.4-10.2) mg/dL Magnesium (1.6-2.6) mg/dL Total Bilirubin (0.0-1.0) mg/dL AST (5-31) U/L ALT (0-31) U/L Alkaline Phosphatase (39-117) U/L Total Protein (6.5-8.0) g/dL Albumin (3.5-5.0) g/dL Beta HCG, Quant mIU/mL Urine Color Dark Yellow Urine Appearance Cloudy Urine pH >= 9.0 (5.0-9.0) Ur Specific [place] >= 1.030 H (1.005-1.025) Urine Protein 30 (1+) H (Neg-Trace) mg/dL Urine Glucose (UA) Negative (Negative) mg/dL Urine Ketones Trace (Negative) mg/dL Urine Blood Negative (Negative) Urine Nitrite Negative (Negative) Ur Leukocyte Esterase Small (1+) H (Negative) Urine RBC 0-2 (0-2) /HPF Urine WBC 0-5 (0-5) /HPF Ur Squamous Epith Cells >20 (0-2) /HPF Urine Bacteria 1+ (None Seen) Hyaline Casts 0-2 (0-2) /LPF Urine Opiates Screen Not Detected (Not Detect) Urine Fentanyl Screen Not Detected (Not Detect) Ur Barbiturates Screen Not Detected (Not Detect) Ur Phencyclidine Scrn Not Detected (Not Detect) Ur Amphetamines Screen Not Detected (Not Detect) U Benzodiazepines Scrn Not Detected (Not Detect) Urine Cocaine Screen Not Detected (Not Detect) U Marijuana (THC) Screen POSITIVE H (Not Detect) Influenza Type A (PCR) NEGATIVE (Negative) Influenza Type B (PCR) NEGATIVE (Negative) RSV RNA Qual (PCR) NEGATIVE (Negative) SARS-CoV-2 RNA (RT-PCR) NEGATIVE (Negative) 03/21/22 03/21/22 Range/Units 14:16 14:16 WBC 16.5 H (4.8-10.8) X10*3/uL RBC 4.43 (4.20-5.50) X10*6/uL Hgb 13.8 (12.0-16.0) g/dl Hct 41.7 (37.0-47.0) % MCV 94.1 (80.0-98.0) fL MCH 31.2 (27.0-33.0) pg MCHC 33.1 (31.0-35.0) g/dl RDW 13.2 (11.0-16.0) % Plt Count 241 (160-400) X10*3/uL MPV 10.3 (9.4-12.3) fL Immature Gran % (Auto) 0.4 (0.0-0.4) % Neut % (Auto) 94.5 H (45-73) % Lymph % (Auto) 2.7 L (20-40) % [place] % (Auto) 2.1 (2-11) % Eos % (Auto) 0.2 (0-4) % Baso % (Auto) 0.1 (0-2) % Lymph # (Auto) 0.4 L (1.2-4.9) X10*3/uL [place] # (Auto) 0.3 (0.1-1.2) X10*3/uL Eos # (Auto) 0.0 (0.0-0.4) X10*3/uL Baso # (Auto) 0.0 (0.0-0.2) X10*3/uL Abs Immat Gran (auto) 0.07 H (0.00-0.03) X10*3/uL Absolute Neuts (auto) 15.6 H (2.0-8.3) x10*3/uL Absolute Nucleated RBC 0.000 (0.0-0.012) X10*3/uL Nucleated RBC % (auto) 0.0 (0.0-0.2) /100WBC Smear Tech's Comments VERIFIED Sodium 141 (135-145) mmol/L Potassium 3.5 (3.3-5.1) mmol/L Chloride 102 (96-108) mmol/L Carbon Dioxide 29 (22-29) mmol/L Anion Gap 14 (12-20) BUN 19 H (9-16) mg/dL Creatinine 0.85 (0.5-1.4) mg/dL Estim Creat Clear Calc 88.9 Estimated GFR > 60 Random Glucose 119 H (60-115) mg/dL Calcium 9.1 (8.4-10.2) mg/dL Magnesium 1.8 (1.6-2.6) mg/dL Total Bilirubin 0.8 (0.0-1.0) mg/dL AST 13 (5-31) U/L ALT 12 (0-31) U/L Alkaline Phosphatase 56 (39-117) U/L Total Protein 6.9 (6.5-8.0) g/dL Albumin 4.2 (3.5-5.0) g/dL Beta HCG, Quant < 2 mIU/mL Urine Color Urine Appearance Urine pH (5.0-9.0) Ur Specific [place] (1.005-1.025) Urine Protein (Neg-Trace) mg/dL Urine Glucose (UA) (Negative) mg/dL Urine Ketones (Negative) mg/dL Urine Blood (Negative) Urine Nitrite (Negative) Ur Leukocyte Esterase (Negative) Urine RBC (0-2) /HPF Urine WBC (0-5) /HPF Ur Squamous Epith Cells (0-2) /HPF Urine Bacteria (None Seen) Hyaline Casts (0-2) /LPF Urine Opiates Screen (Not Detect) Urine Fentanyl Screen (Not Detect) Ur Barbiturates Screen (Not Detect) Ur Phencyclidine Scrn (Not Detect) Ur Amphetamines Screen (Not Detect) U Benzodiazepines Scrn (Not Detect) Urine Cocaine Screen (Not Detect) U Marijuana (THC) Screen (Not Detect) Influenza Type A (PCR) (Negative) Influenza Type B (PCR) (Negative) RSV RNA Qual (PCR) (Negative) SARS-CoV-2 RNA (RT-PCR) (Negative) <JOEY Marks - Last Filed: 03/21/22 14:01> Lab Results 03/21/22 03/21/22 03/21/22 Range/Units 14:12 14:12 14:12 WBC (4.8-10.8) X10*3/uL RBC (4.20-5.50) X10*6/uL Hgb (12.0-16.0) g/dl Hct (37.0-47.0) % MCV (80.0-98.0) fL MCH (27.0-33.0) pg MCHC (31.0-35.0) g/dl RDW (11.0-16.0) % Plt Count (160-400) X10*3/uL MPV (9.4-12.3) fL Immature Gran % (Auto) (0.0-0.4) % Neut % (Auto) (45-73) % Lymph % (Auto) (20-40) % [place] % (Auto) (2-11) % Eos % (Auto) (0-4) % Baso % (Auto) (0-2) % Lymph # (Auto) (1.2-4.9) X10*3/uL [place] # (Auto) (0.1-1.2) X10*3/uL Eos # (Auto) (0.0-0.4) X10*3/uL Baso # (Auto) (0.0-0.2) X10*3/uL Abs Immat Gran (auto) (0.00-0.03) X10*3/uL Absolute Neuts (auto) (2.0-8.3) x10*3/uL Absolute Nucleated RBC (0.0-0.012) X10*3/uL Nucleated RBC % (auto) (0.0-0.2) /100WBC Smear Tech's Comments Sodium (135-145) mmol/L Potassium (3.3-5.1) mmol/L Chloride (96-108) mmol/L Carbon Dioxide (22-29) mmol/L Anion Gap (12-20) BUN (9-16) mg/dL Creatinine (0.5-1.4) mg/dL Estim Creat Clear Calc Estimated GFR Random Glucose (60-115) mg/dL Calcium (8.4-10.2) mg/dL Magnesium (1.6-2.6) mg/dL Total Bilirubin (0.0-1.0) mg/dL AST (5-31) U/L ALT (0-31) U/L Alkaline Phosphatase (39-117) U/L Total Protein (6.5-8.0) g/dL Albumin (3.5-5.0) g/dL Beta HCG, Quant mIU/mL Urine Color Dark Yellow Urine Appearance Cloudy Urine pH >= 9.0 (5.0-9.0) Ur Specific [place] >= 1.030 H (1.005-1.025) Urine Protein 30 (1+) H (Neg-Trace) mg/dL Urine Glucose (UA) Negative (Negative) mg/dL Urine Ketones Trace (Negative) mg/dL Urine Blood Negative (Negative) Urine Nitrite Negative (Negative) Ur Leukocyte Esterase Small (1+) H (Negative) Urine RBC 0-2 (0-2) /HPF Urine WBC 0-5 (0-5) /HPF Ur Squamous Epith Cells >20 (0-2) /HPF Urine Bacteria 1+ (None Seen) Hyaline Casts 0-2 (0-2) /LPF Urine Opiates Screen Not Detected (Not Detect) Urine Fentanyl Screen Not Detected (Not Detect) Ur Barbiturates Screen Not Detected (Not Detect) Ur Phencyclidine Scrn Not Detected (Not Detect) Ur Amphetamines Screen Not Detected (Not Detect) U Benzodiazepines Scrn Not Detected (Not Detect) Urine Cocaine Screen Not Detected (Not Detect) U Marijuana (THC) Screen POSITIVE H (Not Detect) Influenza Type A (PCR) NEGATIVE (Negative) Influenza Type B (PCR) NEGATIVE (Negative) RSV RNA Qual (PCR) NEGATIVE (Negative) SARS-CoV-2 RNA (RT-PCR) NEGATIVE (Negative) 03/21/22 03/21/22 Range/Units 14:16 14:16 WBC 16.5 H (4.8-10.8) X10*3/uL RBC 4.43 (4.20-5.50) X10*6/uL Hgb 13.8 (12.0-16.0) g/dl Hct 41.7 (37.0-47.0) % MCV 94.1 (80.0-98.0) fL MCH 31.2 (27.0-33.0) pg MCHC 33.1 (31.0-35.0) g/dl RDW 13.2 (11.0-16.0) % Plt Count 241 (160-400) X10*3/uL MPV 10.3 (9.4-12.3) fL Immature Gran % (Auto) 0.4 (0.0-0.4) % Neut % (Auto) 94.5 H (45-73) % Lymph % (Auto) 2.7 L (20-40) % [place] % (Auto) 2.1 (2-11) % Eos % (Auto) 0.2 (0-4) % Baso % (Auto) 0.1 (0-2) % Lymph # (Auto) 0.4 L (1.2-4.9) X10*3/uL [place] # (Auto) 0.3 (0.1-1.2) X10*3/uL Eos # (Auto) 0.0 (0.0-0.4) X10*3/uL Baso # (Auto) 0.0 (0.0-0.2) X10*3/uL Abs Immat Gran (auto) 0.07 H (0.00-0.03) X10*3/uL Absolute Neuts (auto) 15.6 H (2.0-8.3) x10*3/uL Absolute Nucleated RBC 0.000 (0.0-0.012) X10*3/uL Nucleated RBC % (auto) 0.0 (0.0-0.2) /100WBC Smear Tech's Comments VERIFIED Sodium 141 (135-145) mmol/L Potassium 3.5 (3.3-5.1) mmol/L Chloride 102 (96-108) mmol/L Carbon Dioxide 29 (22-29) mmol/L Anion Gap 14 (12-20) BUN 19 H (9-16) mg/dL Creatinine 0.85 (0.5-1.4) mg/dL Estim Creat Clear Calc 88.9 Estimated GFR > 60 Random Glucose 119 H (60-115) mg/dL Calcium 9.1 (8.4-10.2) mg/dL Magnesium 1.8 (1.6-2.6) mg/dL Total Bilirubin 0.8 (0.0-1.0) mg/dL AST 13 (5-31) U/L ALT 12 (0-31) U/L Alkaline Phosphatase 56 (39-117) U/L Total Protein 6.9 (6.5-8.0) g/dL Albumin 4.2 (3.5-5.0) g/dL Beta HCG, Quant < 2 mIU/mL Urine Color Urine Appearance Urine pH (5.0-9.0) Ur Specific [place] (1.005-1.025) Urine Protein (Neg-Trace) mg/dL Urine Glucose (UA) (Negative) mg/dL Urine Ketones (Negative) mg/dL Urine Blood (Negative) Urine Nitrite (Negative) Ur Leukocyte Esterase (Negative) Urine RBC (0-2) /HPF Urine WBC (0-5) /HPF Ur Squamous Epith Cells (0-2) /HPF Urine Bacteria (None Seen) Hyaline Casts (0-2) /LPF Urine Opiates Screen (Not Detect) Urine Fentanyl Screen (Not Detect) Ur Barbiturates Screen (Not Detect) Ur Phencyclidine Scrn (Not Detect) Ur Amphetamines Screen (Not Detect) U Benzodiazepines Scrn (Not Detect) Urine Cocaine Screen (Not Detect) U Marijuana (THC) Screen (Not Detect) Influenza Type A (PCR) (Negative) Influenza Type B (PCR) (Negative) RSV RNA Qual (PCR) (Negative) SARS-CoV-2 RNA (RT-PCR) (Negative) <JOEY Caba - Last Filed: 03/21/22 17:44> Discharge Plan Discharge Clinical Impression: Nausea, Vomiting <JOEY Marks - Last Filed: 03/21/22 14:01> Patient Disposition: Home, Self-Care <JOEY Marks - Last Filed: 03/21/22 14:01> Additional Instructions: you did respond to the Zofran and were able to drink Our testing today did show you were mildly dehydrated so drink plenty of fluids or Gatorade when you go home Other lab tests were all fine, you are not It would be a good idea at to not take the Flagyl you are prescribed today and restarted tomorrow after you have rehydrated It is unlikely a vomiting was from Flagyl as it happened many hours after you took her 1st dose but best plan is give it a day Your test done yesterday of vaginal discharge showed both Trichomonas and bacterial vaginosis so you will need to take the Flagyl, but do not need to take it today Return any time for return of vomiting, worsening abdominal pain, fever, dehydration, any worse condition or any concerns <JOEY Marks - Last Filed: 03/21/22 14:01> Prescriptions: New ondansetron 4 mg tablet,disintegrating 4 mg PO Q6H PRN (Reason: nausea and vomiting) Qty: 10 0RF No Action ondansetron HCl 4 mg tablet 4 mg PO Q8H Qty: 14 0RF docusate sodium [Colace] 100 mg capsule 100 mg PO BID PRN (Reason: Constipation) Qty: 14 0RF polyethylene glycol 3350 [Miralax] 17 gram powder in packet 17 g PO DAILY Qty: 14 0RF ketorolac 10 mg tablet 10 mg PO TID PRN (Reason: pain) 5 Days Qty: 15 0RF Rx Instructions: Tolerated IM in the department metronidazole 500 mg tablet 500 mg PO BID 7 Days Qty: 14 0RF <JOEY Marks - Last Filed: 03/21/22 14:01>
[2022-03-21 14:23] LABS: Basophils Percent Auto 0.1 % (0-2); Eosinophils Percent Auto 0.2 % (0-4); Hematocrit 41.7 % (37.0-47.0); Hemoglobin 13.8 g/dl (12.0-16.0); Imm Gran Abs Auto 0.07 X10*3/uL (0.00-0.03); Imm Gran Pct Auto 0.4 % (0.0-0.4); Lymphocytes Absolute Auto 0.4 X10*3/uL (1.2-4.9); Lymphocytes Percent Auto 2.7 % (20-40); MANUAL DIFF FLAG SCAN; Mean Corpuscular HGB Conc 33.1 g/dl (31.0-35.0); Mean Corpuscular Hemoglobin 31.2 pg (27.0-33.0); Mean Corpuscular Volume 94.1 fL (80.0-98.0); Mean Platelet Volume 10.3 fL (9.4-12.3); Monocytes Absolute Auto 0.3 X10*3/uL (0.1-1.2); Monocytes Percent Auto 2.1 % (2-11); Neutrophils Absolute Auto 15.6 x10*3/uL (2.0-8.3); Neutrophils Percent Auto 94.5 % (45-73); Platelet Count 241 X10*3/uL (160-400); Red Blood Count 4.43 X10*6/uL (4.20-5.50); Red Cell Distribution Width 13.2 % (11.0-16.0); SCAN SMEAR FLAG 1; White Blood Count 16.5 X10*3/uL (4.8-10.8)
[2022-03-21 14:24] LABS: Appearance Urine Cloudy; Color Urine Dark Yellow; Glucose Urine UA Negative (Negative); Leukocyte Esterase Urine Small (1+) (Negative); Nitrite Urine Negative (Negative); PH >= 9.0 (5.0-9.0); Specific Gravity - Urine >= 1.030 (1.005-1.025); UMIC TRIGGER UACC YES; Urine Blood Negative (Negative); Urine Ketones Trace mg/dL (Negative); Urine Protein 30 (1+) mg/dL (Neg-Trace)
[2022-03-21 14:32] LABS: Bacteria Urine 1+ (None Seen); Hyaline Casts Urine 0-2 /LPF (0-2); RBC Urine 0-2 /HPF (0-2); Squamous Epithelial Cell Urine >20 /HPF (0-2); UACC Culture Trigger YES; WBC Urine 0-5 /HPF (0-5)
[2022-03-21 14:33] LABS: Amphetamine Screen Urine Not Detected (Not Detect); Barbiturates, Urine Not Detected (Not Detect); Benzodiazepines Screen Urine Not Detected (Not Detect); Cannabinoid Screen Urine POSITIVE (Not Detect); Cocaine Screen Urine Not Detected (Not Detect); Fentanyl, urine Not Detected (Not Detect); Opiate Screen Urine Not Detected (Not Detect); Phencyclidine Screen Urine Not Detected (Not Detect)
[2022-03-21 14:46] LABS: SLIDE REVIEW VERIFIED
[2022-03-21 14:48] LABS: Alanine Aminotransferase 12 U/L (0-31); Albumin Level 4.2 g/dL (3.5-5.0); Alkaline Phosphatase 56 U/L (39-117); Anion Gap 14 (12-20); Aspartate Amino Transferase 13 U/L (5-31); Bilirubin Total 0.8 mg/dL (0.0-1.0); Blood Urea Nitrogen 19 mg/dL (9-16); Calcium 9.1 mg/dL (8.4-10.2); Carbon Dioxide 29 mmol/L (22-29); Chloride 102 mmol/L (96-108); Creatinine Clr Calc Pharmacy 88.9; Estimated Glomerular Filt Rate > 60; Glucose Random 119 mg/dL (60-115); HCG Quantitative < 2 mIU/mL; Magnesium 1.8 mg/dL (1.6-2.6); Potassium 3.5 mmol/L (3.3-5.1); Sodium 141 mmol/L (135-145); Total Protein 6.9 g/dL (6.5-8.0)
[2022-03-21 15:16] LABS: Influenza A PCR NEGATIVE (Negative); Influenza B PCR NEGATIVE (Negative); Resp Syncy Virus RNA Qual PCR NEGATIVE (Negative); SARS COV2 PCR INHOUSE NEGATIVE (Negative)
[2022-03-21] MEDS: Ondansetron ODT 4 MG TAB.RAPDIS TRANSLINGU (16:23)
--- NOTE | 2022-03-21 16:24 | PC.NURSE ---
medicated per provider order.
--- NOTE | 2022-03-21 16:57 | PC.NURSE ---
pt sleeping in room, reporting that she feels a little better after waking, PO challenged with gingerale and crackers.
[2022-03-21 17:39] VITALS: BP 101/60; PULSE 81; RESP 16; TEMP 37.2; O2SAT 99
== END 2022-03-21 18:59 | disposition home or self-care (01) ==
PROVIDERS: Physician Assistant Medical; Emergency Provider Internal Medicine
DX: R11.2 Nausea with vomiting, unspecified (principal); R19.7 Diarrhea, unspecified; R10.9 Unspecified abdominal pain; Z79.899 Other long term (current) drug therapy; Z20.822 Contact with and (suspected) exposure to COVID-19; Z20.828 Contact with and (suspected) exposure to other viral communicable diseases
CPT/HCPCS: 0241U; 80053; 80307; 81001; 83735; 84702; 85025; 87086; 99283

== ENCOUNTER 2022-03-27 14:02 | Emergency (ER) | payer OTHER, SELFPAY ==
--- NOTE | ~2022-03-27 | US_ITS ---
EXAMINATION: US PELVIS CLINICAL INFORMATION: Pelvic pain COMPARISON: CT abdomen pelvis 03/27/2022 earlier today TECHNIQUE: Ultrasound of the pelvis is performed using both transabdominal and transvaginal transducers along with Doppler. Transvaginal imaging is performed due to inadequate visualization transabdominally. FINDINGS: Uterus: The retroverted uterus is anteverted and measures 7.4 x 3.5 x 4.7 cm. The double wall endometrial thickness is 0.4 mm. The uterus is smooth in contour and has normal myometrial echogenicity. No visible fibroid. Adnexa: Both ovaries are visualized. Normal follicular cysts are seen. There is normal color flow to the adnexa. There is no ovarian torsion. There is a small amount of pelvic ascites. Right ovary measures 3.7 x 1.8 x 2.0 cm for a volume of 7 mL. Left ovary measures 2.6 x 1.8 x 1.6 cm for a volume of 8.9 mL. An area in the left lower quadrant was scanned as this was a palpable lump according to the patient. No mass, fluid collection or hernia was seen. US/US pelvic ovarian doppler IMPRESSION: No significant abnormality is seen.
--- NOTE | ~2022-03-27 | CT_ITS ---
EXAMINATION: CT ABDOMEN AND PELVIS WITHOUT CONTRAST CLINICAL INFORMATION: Left lower quadrant discomfort COMPARISON: 02/06/2022. TECHNIQUE: Multidetector volumetric imaging was performed from the superior aspect of the liver through the pubic symphysis. Sagittal and coronal reformatted images were obtained on the technologist's workstation. This CT examination was performed using dose optimization techniques as appropriate, variously including the following: *Automated exposure control *Adjustment of mA and/or kV according to patient size (this includes techniques or standardized protocols for targeted exams where dose is matched to indication/reason for exam; i.e. extremities or head) *Use of iterative reconstruction technique DLP: 403 mGy-cm FINDINGS: LUNG BASES: The visualized lung bases are unremarkable. LIVER, GALLBLADDER, AND BILIARY TREE: The liver is normal in size, shape, and attenuation. No focal hepatic lesion or biliary ductal dilatation is present. Status post cholecystectomy. PANCREAS: Unremarkable. SPLEEN: Unremarkable. ADRENAL GLANDS: Unremarkable. KIDNEYS AND URETERS: Small bilateral nephrolithiasis again observed, not appearing obstructive. No new ureteral stones apparent. BLADDER: Unremarkable. GASTROINTESTINAL TRACT: Moderate to large colonic fecal material throughout the colon. No CT evidence for acute colonic inflammatory process. No small bowel obstructive abnormality or abnormal omental thickening. Postoperative changes near the base of the cecum. ABDOMINAL WALL: No significant hernia is appreciated. LYMPH NODES: No new suspicious lymphadenopathy. VASCULAR: Unremarkable. PELVIC VISCERA: No new suspicious pelvic masses. OSSEOUS STRUCTURES: No evidence for new compression fractures. No acute bony abnormalities. CT/CT abdomen pelvis wo IV con IMPRESSION: No CT evidence for acute inflammatory or obstructive process. Small bilateral nephrolithiasis without any new changes of obstructive uropathy. Moderate to large colonic fecal serial throughout the colon. Other incidental findings as noted above. Fleischner guidelines were followed.
--- NOTE | ~2022-03-27 | US_ITS ---
EXAMINATION: US PELVIS CLINICAL INFORMATION: Pelvic pain COMPARISON: CT abdomen pelvis 03/27/2022 earlier today TECHNIQUE: Ultrasound of the pelvis is performed using both transabdominal and transvaginal transducers along with Doppler. Transvaginal imaging is performed due to inadequate visualization transabdominally. FINDINGS: Uterus: The retroverted uterus is anteverted and measures 7.4 x 3.5 x 4.7 cm. The double wall endometrial thickness is 0.4 mm. The uterus is smooth in contour and has normal myometrial echogenicity. No visible fibroid. Adnexa: Both ovaries are visualized. Normal follicular cysts are seen. There is normal color flow to the adnexa. There is no ovarian torsion. There is a small amount of pelvic ascites. Right ovary measures 3.7 x 1.8 x 2.0 cm for a volume of 7 mL. Left ovary measures 2.6 x 1.8 x 1.6 cm for a volume of 8.9 mL. An area in the left lower quadrant was scanned as this was a palpable lump according to the patient. No mass, fluid collection or hernia was seen. US/US pelvic and transvaginal IMPRESSION: No significant abnormality is seen.
[2022-03-27 14:17] VITALS: BP 107/80; PULSE 95; RESP 17; TEMP 36.1; O2SAT 98; BMI 22.1
--- NOTE | 2022-03-27 14:20 | ED_ITS ---
HPI - Skin/Abscess/Foreign Bdy General Chief complaint: General Medical Stated complaint: lump l thigh Related Data Previous Rx's Medication Instructions Recorded docusate sodium 100 mg capsule 100 mg PO BID PRN Constipation #14 02/06/22 (Colace) caps ondansetron HCl 4 mg tablet 4 mg PO Q8H #14 tabs 02/06/22 polyethylene glycol 3350 17 gram 17 g PO DAILY #14 ea 02/06/22 oral powder packet (Miralax) ketorolac 10 mg tablet 10 mg PO TID PRN pain 5 days #15 02/17/22 tabs metronidazole 500 mg tablet 500 mg PO BID 7 days #14 tabs 03/20/22 ondansetron 4 mg disintegrating 4 mg PO Q6H PRN nausea and 03/21/22 tablet vomiting #10 tabs acetaminophen 500 mg tablet 500 mg PO Q6H PRN fever or pain 06/02/22 (Tylenol Extra Strength) #14 tabs naproxen 500 mg tablet 500 mg PO BID PRN pain 10 days #20 06/02/22 tabs Allergies Allergy/AdvReac Type Severity Reaction Status Date / Time divalproex sodium Allergy Intermediate SEVERE Verified 03/20/22 13:06 [From DEPAKOTE] HEADACHE adhesive tape [ADHESIVE TAPE] Allergy Unknown RASH Verified 03/20/22 13:06 lactose [LACTOSE] Allergy Unknown DIARRHEA Verified 03/20/22 13:06 morphine [MORPHINE] Allergy Unknown GI UPSET Verified 03/20/22 13:06 Adhesive Bandages Allergy Unknown Unknown Uncoded 03/20/22 13:06 [facility] Past Medical History 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 32-year-old female presents to the emergency department complaints of a bulging sensation to left lower quadrant, she says something intermittently pops out, she also reports that she has been feeling nauseous, was late to her. , unsure if she is . Denies fevers, chills, vomiting, changes in bowel habits, chest pain, shortness of breath. Physical exam unremarkable Plan at this time CT of the abdomen pelvis without contrast to rule out hernia. I do not suspect incarcerated hernia. Will obtain basic labs, hCG. Medical Decision Making Lab Data 03/27/22 14:55 03/27/22 14:55 Labs: Lab Results 03/27/22 03/27/22 03/27/22 Range/Units 14:55 14:55 14:55 WBC 7.0 (4.8-10.8) X10*3/uL RBC 4.76 (4.20-5.50) X10*6/uL Hgb 14.6 (12.0-16.0) g/dl Hct 44.6 (37.0-47.0) % MCV 93.7 (80.0-98.0) fL MCH 30.7 (27.0-33.0) pg MCHC 32.7 (31.0-35.0) g/dl RDW 13.2 (11.0-16.0) % Plt Count 259 (160-400) X10*3/uL MPV 10.1 (9.4-12.3) fL Immature Gran % (Auto) 0.4 (0.0-0.4) % Neut % (Auto) 66.1 (45-73) % Lymph % (Auto) 24.6 (20-40) % [place] % (Auto) 6.6 (2-11) % Eos % (Auto) 1.9 (0-4) % Baso % (Auto) 0.4 (0-2) % Lymph # (Auto) 1.7 (1.2-4.9) X10*3/uL [place] # (Auto) 0.5 (0.1-1.2) X10*3/uL Eos # (Auto) 0.1 (0.0-0.4) X10*3/uL Baso # (Auto) 0.0 (0.0-0.2) X10*3/uL Abs Immat Gran (auto) 0.03 (0.00-0.03) X10*3/uL Absolute Neuts (auto) 4.6 (2.0-8.3) x10*3/uL Absolute Nucleated RBC 0.000 (0.0-0.012) X10*3/uL Nucleated RBC % (auto) 0.0 (0.0-0.2) /100WBC Sodium 141 (135-145) mmol/L Potassium 4.1 (3.3-5.1) mmol/L Chloride 105 (96-108) mmol/L Carbon Dioxide 28 (22-29) mmol/L Anion Gap 12 (12-20) BUN 19 H (9-16) mg/dL Creatinine 0.92 (0.5-1.4) mg/dL Estim Creat Clear Calc 82.1 Estimated GFR > 60 Random Glucose 68 (60-115) mg/dL Calcium 9.5 (8.4-10.2) mg/dL Magnesium 1.9 (1.6-2.6) mg/dL Total Bilirubin 0.2 (0.0-1.0) mg/dL AST 15 (5-31) U/L ALT 16 (0-31) U/L Alkaline Phosphatase 45 (39-117) U/L Total Protein 6.8 (6.5-8.0) g/dL Albumin 4.1 (3.5-5.0) g/dL Lipase 47 (8-78) U/L Beta HCG, Quant < 2 mIU/mL Discharge Plan Discharge Clinical Impression: Eloped from emergency department Patient Disposition: Elopement Prescriptions: No Action ondansetron HCl 4 mg tablet 4 mg PO Q8H Qty: 14 0RF docusate sodium [Colace] 100 mg capsule 100 mg PO BID PRN (Reason: Constipation) Qty: 14 0RF polyethylene glycol 3350 [Miralax] 17 gram powder in packet 17 g PO DAILY Qty: 14 0RF ketorolac 10 mg tablet 10 mg PO TID PRN (Reason: pain) 5 Days Qty: 15 0RF Rx Instructions: Tolerated IM in the department metronidazole 500 mg tablet 500 mg PO BID 7 Days Qty: 14 0RF ondansetron 4 mg tablet,disintegrating 4 mg PO Q6H PRN (Reason: nausea and vomiting) Qty: 10 0RF acetaminophen [Tylenol Extra Strength] 500 mg tablet 500 mg PO Q6H PRN (Reason: fever or pain) Qty: 14 0RF naproxen 500 mg tablet 500 mg PO BID PRN (Reason: pain) 10 Days Qty: 20 0RF Interventions: ED Discharge Assessment Last Done: 03/27/22 21:56 Discharge Date/Time: 03/27/22 21:36
[2022-03-27 14:58] LABS: MANUAL DIFF FLAG NO
[2022-03-27 15:00] LABS: Basophils Percent Auto 0.4 % (0-2); Eosinophils Absolute Auto 0.1 X10*3/uL (0.0-0.4); Eosinophils Percent Auto 1.9 % (0-4); Hematocrit 44.6 % (37.0-47.0); Hemoglobin 14.6 g/dl (12.0-16.0); Imm Gran Abs Auto 0.03 X10*3/uL (0.00-0.03); Imm Gran Pct Auto 0.4 % (0.0-0.4); Lymphocytes Absolute Auto 1.7 X10*3/uL (1.2-4.9); Lymphocytes Percent Auto 24.6 % (20-40); Mean Corpuscular HGB Conc 32.7 g/dl (31.0-35.0); Mean Corpuscular Hemoglobin 30.7 pg (27.0-33.0); Mean Corpuscular Volume 93.7 fL (80.0-98.0); Mean Platelet Volume 10.1 fL (9.4-12.3); Monocytes Absolute Auto 0.5 X10*3/uL (0.1-1.2); Monocytes Percent Auto 6.6 % (2-11); Neutrophils Absolute Auto 4.6 x10*3/uL (2.0-8.3); Neutrophils Percent Auto 66.1 % (45-73); Platelet Count 259 X10*3/uL (160-400); Red Blood Count 4.76 X10*6/uL (4.20-5.50); Red Cell Distribution Width 13.2 % (11.0-16.0)
[2022-03-27 15:16] LABS: Alanine Aminotransferase 16 U/L (0-31); Albumin Level 4.1 g/dL (3.5-5.0); Alkaline Phosphatase 45 U/L (39-117); Anion Gap 12 (12-20); Aspartate Amino Transferase 15 U/L (5-31); Bilirubin Total 0.2 mg/dL (0.0-1.0); Blood Urea Nitrogen 19 mg/dL (9-16); Calcium 9.5 mg/dL (8.4-10.2); Carbon Dioxide 28 mmol/L (22-29); Chloride 105 mmol/L (96-108); Creatinine Clr Calc Pharmacy 82.1; Estimated Glomerular Filt Rate > 60; Glucose Random 68 mg/dL (60-115); Lipase 47 U/L (8-78); Magnesium 1.9 mg/dL (1.6-2.6); Potassium 4.1 mmol/L (3.3-5.1); Sodium 141 mmol/L (135-145); Total Protein 6.8 g/dL (6.5-8.0)
[2022-03-27 15:46] LABS: HCG Quantitative < 2 mIU/mL
[2022-03-27 18:14] VITALS: BP 132/84; PULSE 82; RESP 18; TEMP 36.6; O2SAT 99
== END 2022-03-27 21:36 | disposition left against medical advice (07) ==
PROVIDERS: Physician Assistant; Emergency Provider Emergency Medicine
DX: R19.04 Left lower quadrant abdominal swelling, mass and lump (principal)
CPT/HCPCS: 36415; 74176; 76830; 76856; 80053; 83690; 83735; 84702; 85025; 93975; 99282; 99284

== ENCOUNTER 2022-04-02 12:08 | Emergency (ER) | payer OTHER, SELFPAY ==
--- NOTE | 2022-04-02 12:29 | ED_ITS ---
HPI - Abdominal Pain General Chief Complaint: Abdominal Pain Stated Complaint: lower abd pain Related Data Previous Rx's Medication Instructions Recorded docusate sodium 100 mg capsule 100 mg PO BID PRN Constipation #14 02/06/22 (Colace) caps ondansetron HCl 4 mg tablet 4 mg PO Q8H #14 tabs 02/06/22 polyethylene glycol 3350 17 gram 17 g PO DAILY #14 ea 02/06/22 oral powder packet (Miralax) ketorolac 10 mg tablet 10 mg PO TID PRN pain 5 days #15 02/17/22 tabs metronidazole 500 mg tablet 500 mg PO BID 7 days #14 tabs 03/20/22 ondansetron 4 mg disintegrating 4 mg PO Q6H PRN nausea and 03/21/22 tablet vomiting #10 tabs Allergies Allergy/AdvReac Type Severity Reaction Status Date / Time divalproex sodium Allergy Intermediate SEVERE Verified 03/20/22 13:06 [From DEPAKOTE] HEADACHE adhesive tape [ADHESIVE TAPE] Allergy Unknown RASH Verified 03/20/22 13:06 lactose [LACTOSE] Allergy Unknown DIARRHEA Verified 03/20/22 13:06 morphine [MORPHINE] Allergy Unknown GI UPSET Verified 03/20/22 13:06 Adhesive Bandages Allergy Unknown Unknown Uncoded 03/20/22 13:06 [facility] Past Medical History Surgical History H/O right knee surgery History of appendectomy History of section Social History Social History Advance Directives: No Advance Directives Information Provided: No 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 Patient is a 32-year-old female who presents to the emergency department Complaining of diffuse lower abdominal pain while at rest is minimal, but is severe while she is up and walking around brings her to her knees. She reports onset of pain to be last week, denies having any pain previously. She trialed Tylenol and ibuprofen without significant improvement. Last menstrual period was due 03/23/22 a denies history of irregular menses. Denies genitourinary symptoms. She does state that she has been having loose stools for the past 2 days. She reports that she was seen here last week, had CT of the abdomen and pelvis, as well as an ultrasound, but ultimately left from the waiting room did not receive these results. - CT negative for acute inflammatory or obstructive process, moderate to large colonic fecal presence, pelvic ultrasound with no significant abnormality. She was seen in the emergency department 03/21/2022 also with nausea, vomiting, lower abdominal pain at that time, at that time was found to be dehydrated, she was also receiving treatment for trichomoniasis and bacterial vaginosis. She states that she completed antibiotic treatment. Plan: Labs, urinalysis, hCG, given that she just had recent CT abdomen and pelvis in addition to pelvic ultrasound would not repeat at this time. Medical Decision Making Lab Data 04/02/22 12:44 04/02/22 12:45 Labs: Lab Results 04/02/22 04/02/22 04/02/22 Range/Units 12:41 12:41 12:44 WBC 8.0 (4.8-10.8) X10*3/uL RBC 4.11 L (4.20-5.50) X10*6/uL Hgb 12.8 (12.0-16.0) g/dl Hct 39.2 (37.0-47.0) % MCV 95.4 (80.0-98.0) fL MCH 31.1 (27.0-33.0) pg MCHC 32.7 (31.0-35.0) g/dl RDW 13.1 (11.0-16.0) % Plt Count 273 (160-400) X10*3/uL MPV 10.2 (9.4-12.3) fL Immature Gran % (Auto) 0.3 (0.0-0.4) % Neut % (Auto) 69.3 (45-73) % Lymph % (Auto) 22.9 (20-40) % [place] % (Auto) 5.4 (2-11) % Eos % (Auto) 1.5 (0-4) % Baso % (Auto) 0.6 (0-2) % Lymph # (Auto) 1.8 (1.2-4.9) X10*3/uL [place] # (Auto) 0.4 (0.1-1.2) X10*3/uL Eos # (Auto) 0.1 (0.0-0.4) X10*3/uL Baso # (Auto) 0.1 (0.0-0.2) X10*3/uL Abs Immat Gran (auto) 0.02 (0.00-0.03) X10*3/uL Absolute Neuts (auto) 5.5 (2.0-8.3) x10*3/uL Absolute Nucleated RBC 0.000 (0.0-0.012) X10*3/uL Nucleated RBC % (auto) 0.0 (0.0-0.2) /100WBC Sodium (135-145) mmol/L Potassium (3.3-5.1) mmol/L Chloride (96-108) mmol/L Carbon Dioxide (22-29) mmol/L Anion Gap (12-20) BUN (9-16) mg/dL Creatinine (0.5-1.4) mg/dL Estim Creat Clear Calc Estimated GFR Random Glucose (60-115) mg/dL Calcium (8.4-10.2) mg/dL Total Bilirubin (0.0-1.0) mg/dL AST (5-31) U/L ALT (0-31) U/L Alkaline Phosphatase (39-117) U/L Total Protein (6.5-8.0) g/dL Albumin (3.5-5.0) g/dL Lipase (8-78) U/L Urine Color Yellow Urine Appearance Cloudy Urine pH 7.5 (5.0-9.0) Ur Specific [place] 1.020 (1.005-1.025) Urine Protein Negative (Neg-Trace) mg/dL Urine Glucose (UA) Negative (Negative) mg/dL Urine Ketones Negative (Negative) mg/dL Urine Blood Negative (Negative) Urine Nitrite Negative (Negative) Ur Leukocyte Esterase Trace H (Negative) Urine RBC 0-2 (0-2) /HPF Urine WBC 0-5 (0-5) /HPF Ur Squamous Epith Cells >20 (0-2) /HPF Urine Bacteria 2+ (None Seen) Hyaline Casts 0-2 (0-2) /LPF Urine Test NEGATIVE (NEGATIVE) 04/02/22 Range/Units 12:45 WBC (4.8-10.8) X10*3/uL RBC (4.20-5.50) X10*6/uL Hgb (12.0-16.0) g/dl Hct (37.0-47.0) % MCV (80.0-98.0) fL MCH (27.0-33.0) pg MCHC (31.0-35.0) g/dl RDW (11.0-16.0) % Plt Count (160-400) X10*3/uL MPV (9.4-12.3) fL Immature Gran % (Auto) (0.0-0.4) % Neut % (Auto) (45-73) % Lymph % (Auto) (20-40) % [place] % (Auto) (2-11) % Eos % (Auto) (0-4) % Baso % (Auto) (0-2) % Lymph # (Auto) (1.2-4.9) X10*3/uL [place] # (Auto) (0.1-1.2) X10*3/uL Eos # (Auto) (0.0-0.4) X10*3/uL Baso # (Auto) (0.0-0.2) X10*3/uL Abs Immat Gran (auto) (0.00-0.03) X10*3/uL Absolute Neuts (auto) (2.0-8.3) x10*3/uL Absolute Nucleated RBC (0.0-0.012) X10*3/uL Nucleated RBC % (auto) (0.0-0.2) /100WBC Sodium 142 (135-145) mmol/L Potassium 4.3 (3.3-5.1) mmol/L Chloride 106 (96-108) mmol/L Carbon Dioxide 28 (22-29) mmol/L Anion Gap 12 (12-20) BUN 18 H (9-16) mg/dL Creatinine 0.74 (0.5-1.4) mg/dL Estim Creat Clear Calc 102.2 Estimated GFR > 60 Random Glucose 85 (60-115) mg/dL Calcium 9.2 (8.4-10.2) mg/dL Total Bilirubin 0.3 (0.0-1.0) mg/dL AST 15 (5-31) U/L ALT 16 (0-31) U/L Alkaline Phosphatase 44 (39-117) U/L Total Protein 6.7 (6.5-8.0) g/dL Albumin 4.0 (3.5-5.0) g/dL Lipase 25 (8-78) U/L Urine Color Urine Appearance Urine pH (5.0-9.0) Ur Specific [place] (1.005-1.025) Urine Protein (Neg-Trace) mg/dL Urine Glucose (UA) (Negative) mg/dL Urine Ketones (Negative) mg/dL Urine Blood (Negative) Urine Nitrite (Negative) Ur Leukocyte Esterase (Negative) Urine RBC (0-2) /HPF Urine WBC (0-5) /HPF Ur Squamous Epith Cells (0-2) /HPF Urine Bacteria (None Seen) Hyaline Casts (0-2) /LPF Urine Test (NEGATIVE) Discharge Plan Discharge Clinical Impression: Abdominal pain Patient Disposition: Elopement Prescriptions: No Action ondansetron HCl 4 mg tablet 4 mg PO Q8H Qty: 14 0RF docusate sodium [Colace] 100 mg capsule 100 mg PO BID PRN (Reason: Constipation) Qty: 14 0RF polyethylene glycol 3350 [Miralax] 17 gram powder in packet 17 g PO DAILY Qty: 14 0RF ketorolac 10 mg tablet 10 mg PO TID PRN (Reason: pain) 5 Days Qty: 15 0RF Rx Instructions: Tolerated IM in the department metronidazole 500 mg tablet 500 mg PO BID 7 Days Qty: 14 0RF ondansetron 4 mg tablet,disintegrating 4 mg PO Q6H PRN (Reason: nausea and vomiting) Qty: 10 0RF Interventions: ED Discharge Assessment Last Done: 04/02/22 20:20 Discharge Date/Time: 04/02/22 20:21
[2022-04-02 12:30] VITALS: BP 107/71; PULSE 76; RESP 19; TEMP 36.6; O2SAT 99; BMI 22.1
[2022-04-02 12:49] LABS: MANUAL DIFF FLAG NO
[2022-04-02 12:58] LABS: Basophils Absolute Auto 0.1 X10*3/uL (0.0-0.2); Basophils Percent Auto 0.6 % (0-2); Eosinophils Absolute Auto 0.1 X10*3/uL (0.0-0.4); Eosinophils Percent Auto 1.5 % (0-4); Hematocrit 39.2 % (37.0-47.0); Hemoglobin 12.8 g/dl (12.0-16.0); Imm Gran Abs Auto 0.02 X10*3/uL (0.00-0.03); Imm Gran Pct Auto 0.3 % (0.0-0.4); Lymphocytes Absolute Auto 1.8 X10*3/uL (1.2-4.9); Lymphocytes Percent Auto 22.9 % (20-40); Mean Corpuscular HGB Conc 32.7 g/dl (31.0-35.0); Mean Corpuscular Hemoglobin 31.1 pg (27.0-33.0); Mean Corpuscular Volume 95.4 fL (80.0-98.0); Mean Platelet Volume 10.2 fL (9.4-12.3); Monocytes Absolute Auto 0.4 X10*3/uL (0.1-1.2); Monocytes Percent Auto 5.4 % (2-11); Neutrophils Absolute Auto 5.5 x10*3/uL (2.0-8.3); Neutrophils Percent Auto 69.3 % (45-73); Platelet Count 273 X10*3/uL (160-400); Red Blood Count 4.11 X10*6/uL (4.20-5.50); Red Cell Distribution Width 13.1 % (11.0-16.0)
[2022-04-02 12:59] LABS: Appearance Urine Cloudy; Color Urine Yellow; Glucose Urine UA Negative (Negative); Leukocyte Esterase Urine Trace (Negative); Nitrite Urine Negative (Negative); PH 7.5 (5.0-9.0); UMIC TRIGGER UACC YES; Urine Blood Negative (Negative); Urine Ketones Negative (Negative); Urine Protein Negative (Neg-Trace)
[2022-04-02 13:04] LABS: Bacteria Urine 2+ (None Seen); Hyaline Casts Urine 0-2 /LPF (0-2); RBC Urine 0-2 /HPF (0-2); Squamous Epithelial Cell Urine >20 /HPF (0-2); UPreg QC Valid YES; Urine Pregnancy NEGATIVE (NEGATIVE); WBC Urine 0-5 /HPF (0-5)
[2022-04-02 13:08] LABS: Alanine Aminotransferase 16 U/L (0-31); Alkaline Phosphatase 44 U/L (39-117); Anion Gap 12 (12-20); Aspartate Amino Transferase 15 U/L (5-31); Bilirubin Total 0.3 mg/dL (0.0-1.0); Blood Urea Nitrogen 18 mg/dL (9-16); Calcium 9.2 mg/dL (8.4-10.2); Carbon Dioxide 28 mmol/L (22-29); Chloride 106 mmol/L (96-108); Creatinine Clr Calc Pharmacy 102.2; Estimated Glomerular Filt Rate > 60; Glucose Random 85 mg/dL (60-115); Lipase 25 U/L (8-78); Potassium 4.3 mmol/L (3.3-5.1); Sodium 142 mmol/L (135-145); Total Protein 6.7 g/dL (6.5-8.0)
[2022-04-02 17:08] VITALS: BP 114/80; PULSE 72; RESP 19; TEMP 36.6; O2SAT 98
== END 2022-04-02 20:21 | disposition left against medical advice (07) ==
PROVIDERS: Nurse Practitioner Family; Emergency Provider Emergency Medicine
DX: R10.30 Lower abdominal pain, unspecified (principal)
CPT/HCPCS: 36415; 80053; 81001; 81003; 81025; 83690; 85025; 99282; 99283

== ENCOUNTER 2022-06-02 07:41 | Emergency (ER) | payer OTHER, SELFPAY ==
--- NOTE | ~2022-06-02 | XR_ITS ---
EXAMINATION: XR ELBOW, LEFT CLINICAL INFORMATION: Pain. COMPARISON: None available. TECHNIQUE: AP, lateral, and oblique views of the left elbow. FINDINGS: The bones and soft tissues are normal. No fracture or joint effusion. Alignment is anatomic. Joint spaces are maintained. XR/XR elbow LT min 3V IMPRESSION: Unremarkable left elbow.
[2022-06-02 07:56] VITALS: BP 132/79; PULSE 100; RESP 20; TEMP 36.5; O2SAT 99; BMI 23.9
--- NOTE | 2022-06-02 08:06 | ED.EXTPRO ---
HPI - Extremity Problem General Chief complaint: Extremity Problem Stated complaint: L elbow pain Time Seen by Provider: 06/02/22 08:03 Source: patient Mode of arrival: ambulatory History of Present Illness HPI Narrative: 32-year-old female no significant medical history presenting to the ED complaining of left elbow pain worsening x 3 weeks. Reports history of her line fracture in same elbow last September, states did not follow directions and was still using elbow, going to the gym, and doing pushups. Reports consistently going to the gym at present which is exacerbating symptoms. Denies direct injury/trauma or fall, numbness/tingling, weakness, fever MD Complaint: joint pain Onset (ago): week(s) Related Data Previous Rx's Medication Instructions Recorded docusate sodium 100 mg capsule 100 mg PO BID PRN Constipation #14 02/06/22 (Colace) caps ondansetron HCl 4 mg tablet 4 mg PO Q8H #14 tabs 02/06/22 polyethylene glycol 3350 17 gram 17 g PO DAILY #14 ea 02/06/22 oral powder packet (Miralax) ketorolac 10 mg tablet 10 mg PO TID PRN pain 5 days #15 02/17/22 tabs metronidazole 500 mg tablet 500 mg PO BID 7 days #14 tabs 03/20/22 ondansetron 4 mg disintegrating 4 mg PO Q6H PRN nausea and 03/21/22 tablet vomiting #10 tabs acetaminophen 500 mg tablet 500 mg PO Q6H PRN fever or pain 06/02/22 (Tylenol Extra Strength) #14 tabs naproxen 500 mg tablet 500 mg PO BID PRN pain 10 days #20 06/02/22 tabs Allergies Allergy/AdvReac Type Severity Reaction Status Date / Time divalproex sodium Allergy Intermediate SEVERE Verified 03/20/22 13:06 [From DEPAKOTE] HEADACHE adhesive tape [ADHESIVE TAPE] Allergy Unknown RASH Verified 03/20/22 13:06 lactose [LACTOSE] Allergy Unknown DIARRHEA Verified 03/20/22 13:06 morphine [MORPHINE] Allergy Unknown GI UPSET Verified 03/20/22 13:06 Adhesive Bandages Allergy Unknown Unknown Uncoded 03/20/22 13:06 Review of Systems Review of Systems: Constitutional: No Fever, No Chills ENT/Mouth: No Ear Pain, No Nasal Congestion, No sore throat, No Rhinorrhea, No Swallowing Difficulty Cardiovascular: No Chest Pain, No SOB Respiratory: No Cough, No Sputum, No Wheezing Gastrointestinal: No Nausea, No Vomiting, No Diarrhea, No Constipation, No Abdominal pain Genitourinary: No Dysuria, No Urinary Frequency, No Hematuria Musculoskeletal: + joint pain, No Myalgias, No Joint Swelling Skin: No Skin Lesions, No rash Neuro: No Weakness, No Numbness, No Paresthesias Yes all other systems are reviewed and are negative Constitutional: Constitutional: Reports as per [facility] Past Medical History Attestation statement: The following information was validated with the patient. 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 Physical Exam Vital Signs: Vital Signs: Last Vital Signs Temp 97.7 F 06/02/22 07:56 Pulse 71 06/02/22 10:06 Resp 18 06/02/22 10:06 BP 114/74 06/02/22 10:06 Pulse Ox 98 06/02/22 10:06 O2 Del Method Room Air 06/02/22 10:06 BMI result Body Mass Index 23.9 Const: General: cooperative, healthy appearing, no acute distress, alert and awake Orientation/consciousness: patient oriented x3 Limitations: no limitations HEENT: Head: Yes normal to inspection and Yes atraumatic Ears: hearing grossly normal bilaterally General nose exam: Normal external nose present Face and sinus: Yes normal facial exam Eyes: General: appearance normal, both eyes and all related structures EOM: EOMs intact bilaterally Neck: Neck: Yes normal visual inspection and Yes no meningeal signs Resp: Effort & Inspection: normal respiratory effort and no respiratory distress Cardio: Rate: regular rate Peripheral pulses: radial pulses present and ulnar radial pulses present Skin: Rashes: no rashes Wounds: no wounds Neuro: General: patient oriented x3, tone normal and no meningeal signs Gait exam (Neuro): Normal gait present Extrem: Other: Left elbow without deformity/erythema or. Diffusely tender to palpation. Decreased ROM secondary to pain. NV intact distally. Compartments soft. General: Yes normal to inspection Course Course Course Narrative: XR elbow LT min 3V IMPRESSION: Unremarkable left elbow. Results discussed with patient including worrisome signs and symptoms and strict return precautions, and when to return to the emergency department. They verbalized understanding and feel safe for discharge at this time. Medications Administered Discontinued Medications Generic Name Dose Route Start Last Admin Trade Name Freq PRN Reason Stop Dose Admin Ketorolac Tromethamine 30 mg 06/02/22 08:12 06/02/22 08:20 Ketorolac Tromethamine 30 Mg/Ml Vial IM 06/02/22 08:13 30 mg ONCE ONE Administration Medical Decision Making Medical Decision Making MDM Narrative: 32-year-old female no significant medical history presenting to the ED complaining of left elbow pain worsening x 3 weeks. On exam vital signs stable, NAD, nontoxic appearing, physical exam as noted above. Concern for tendinitis vs fracture vs sprain. Low suspicion for septic joint/arthritis or bursitis. No evidence of cellulitis Plan: X-rays, IM Toradol Please refer to course for remaining clinical decision making, interpretation of labs/imaging results, and discussions with consultants and/or family members. Differential Diagnosis Differential Diagnoses: The differential diagnosis associated with the presentation includes As above Lab Data [facility] Lab Attestation statement: I reviewed the patient's lab results. Radiology Impression Discussion of test interpretation with radiology: I have reviewed the radiologist's reading. External Record Review External record reviewed: Inpatient record, Office record, Outpatient record, Prior outpatient labs, Prior outpatient radiology, Primary care record and Outside ED record Discharge Plan Discharge Clinical Impression: Elbow pain Patient Disposition: Home, Self-Care Instructions: Arm Pain (ED) Additional Instructions: Your x-ray is unremarkable. Naproxen as an anti-inflammatory/pain medication, take with food In addition take Tylenol Follow-up with her doctor Rest. Apply ice and heat If symptoms persist or worsen return to the ED Prescriptions: New acetaminophen [Tylenol Extra Strength] 500 mg tablet 500 mg PO Q6H PRN (Reason: fever or pain) Qty: 14 0RF naproxen 500 mg tablet 500 mg PO BID PRN (Reason: pain) 10 Days Qty: 20 0RF No Action ondansetron HCl 4 mg tablet 4 mg PO Q8H Qty: 14 0RF docusate sodium [Colace] 100 mg capsule 100 mg PO BID PRN (Reason: Constipation) Qty: 14 0RF polyethylene glycol 3350 [Miralax] 17 gram powder in packet 17 g PO DAILY Qty: 14 0RF ketorolac 10 mg tablet 10 mg PO TID PRN (Reason: pain) 5 Days Qty: 15 0RF Rx Instructions: Tolerated IM in the department metronidazole 500 mg tablet 500 mg PO BID 7 Days Qty: 14 0RF ondansetron 4 mg tablet,disintegrating 4 mg PO Q6H PRN (Reason: nausea and vomiting) Qty: 10 0RF Referrals: [facility] [Provider Group] Physician,Unknown J [Primary Care Provider] - 5 days Interventions: ED Discharge Assessment Last Done: 06/02/22 10:07 Discharge Date/Time: 06/02/22 10:10
[2022-06-02] MEDS: Ketorolac Tromethamine 30 MG/ML VIAL IM (08:20)
[2022-06-02 10:06] VITALS: BP 114/74; PULSE 71; RESP 18; O2SAT 98
== END 2022-06-02 10:10 | disposition home or self-care (01) ==
PROVIDERS: Emergency Provider Emergency Medicine
DX: M25.522 Pain in left elbow (principal); Z79.899 Other long term (current) drug therapy
CPT/HCPCS: 73080; 96372; 99284; J1885

== ENCOUNTER 2023-02-20 08:06 | Outpatient (AMB) | payer OTHER, SELFPAY ==
--- NOTE | 2023-02-20 08:20 | MHC.OFFVIS ---
Intake Vital Signs 02/20/23 08:26 Height 5 ft 6 in Weight 148 lb BMI 23.9 Intake Visit Reasons: Newprob-Right knee pain Intake Note: Melly is a 33 year old female who presents today for a evaluation of her right knee pain. Patient reports that on 01/09/23 she was sitting with her legs folded under her, when she went to get up she felt a pop in the knee. History of right knee arthroscopy 05/02/15 she has been wearing a brace on and off since the injury, she complains of significant pain of the knee cap that radiates down the leg. Her pain is keeping her up at night. She taking tylenol, Ibuprofen, Heat and ice application which do not help alleviate the pain.. Allergies divalproex sodium [From DEPAKOTE] Allergy (Intermediate, Verified 03/20/22 13:06) SEVERE HEADACHE adhesive tape [ADHESIVE TAPE] Allergy (Unknown, Verified 03/20/22 13:06) RASH lactose [LACTOSE] Allergy (Unknown, Verified 03/20/22 13:06) DIARRHEA morphine [MORPHINE] Allergy (Unknown, Verified 03/20/22 13:06) GI UPSET Adhesive Bandages Allergy (Unknown, Uncoded 03/20/22 13:06) Unknown HPI Newprob-Right knee pain HPI Details 33-year-old female who presents in the office today for an evaluation of right knee pain. The patient reports on 01/09/2023 she was sitting with her legs folded under her when she felt a pop as she tried to get up. She states she has been intermittently wearing a brace (knee immobilizer), TITO wrap, and using crutches sine the injury. She complains of significant pain at the knee cap that radiates down the right leg. She states the pain is keep her up at night due to pain and being unable to sleep on the right side. She confirms taking Tylenol, Ibuprofen. She has been applying heat and ice which does not give her any relief. She states on the day of the injury she tried to move the knee cap and states ?it felt like sand?. She claims she has been able to move the knee but is unable to bear weight on it and is unable to move it. She states her right knee is giving out on her and she states she does not feel safe walking. She would like a knee brace. She states she has been doing her own physical therapy at home. She reports she is temporarily staying at her mother house but is usually homeless. Surgical history of right knee arthroscopy on 05/02/[address] Valles. 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 Patient is unwilling to perform ROM with the knee. The right knee is held in a flexed position at about 45 degrees. NVI. Assessment & Plan Assessment & Plan (1) Pain of right patella: Code(s): M25.561 - Pain in right knee Plan Ms. Palmer is a 33-year-old female who presents in the office today for an evaluation of right knee pain. The patient reports on 01/09/2023 she was sitting with her legs folded under her when she felt a pop as she tried to get up. She states she has been intermittently wearing a brace (knee immobilizer), TITO wrap, and using crutches sine the injury. She complains of significant pain at the knee cap that radiates down the right leg. She states the pain is keep her up at night due to pain and being unable to sleep on the right side. She confirms taking Tylenol, Ibuprofen. She has been applying heat and ice which does not give her any relief. She states on the day of the injury she tried to move the knee cap and states ?it felt like sand?. She claims she has been able to move the knee but is unable to bear weight on it and is unable to move it. She states her right knee is giving out on her and she states she does not feel safe walking. She would like a knee brace. She states she has been doing her own physical therapy at home. She reports she is temporarily staying at her mother house but is typically homeless. Surgical history of right knee arthroscopy on 05/02/[address] Valles. The patient will be referred to physical therapy. Due to the patient not have a ride she will request a Lyft rides when scheduling her physical therapy appointments. I strongly recommended to the patient the importance of not wearing a brace at this time to work on ROM to aid in decreasing the stiffness. However, due to the patient stating she would feel safer with mobility we have supplied her with a True Pull knee brace, off the shelf. Follow up will be in 6 weeks, or sooner if needed. X-rays of the right knee which were obtained while in the office today and were reviewed by me, Marlin Means PA-C, revealed no acute fracture or dislocation. No evidence of osteoarthritis. Orders: Orders XR knee RT 2V Today M25.569 - Pain in unspecified knee XR knee standing BI Today M25.569 - Pain in unspecified knee PT Evaluation and Treatment Today M25.561 - Pain in right knee Coding Level of Care Code Est Pt Level 4 (19944) Diagnoses Pain of right patella M25.561
[2023-02-20 08:26] VITALS: BMI 23.9
== END 2023-02-20 09:11 | disposition home or self-care (01) ==
PROVIDERS: Visit Provider Physician Assistant
DX: M25.561 Pain in right knee (principal)
CPT/HCPCS: 99214

== ENCOUNTER 2023-02-20 08:27 | Outpatient (REF) | payer OTHER, SELFPAY ==
--- NOTE | ~2023-02-20 | XR_ITS ---
EXAMINATION: XR KNEE, RIGHT XR KNEE AP STANDING CLINICAL INFORMATION: Pain. COMPARISON: Prior radiographs, most recently 09/28/2016. TECHNIQUE: Lateral and axial views of the right knee were obtained. AP bilateral standing view of the knees was obtained. FINDINGS: No fracture or joint effusion. Alignment is anatomic. Joint spaces are maintained bilaterally. There is no significant varus or valgus configuration. No abnormal soft tissue calcification. XR/XR knee standing BI IMPRESSION: Normal right knee radiographs an AP standing view of the bilateral knees.
--- NOTE | ~2023-02-20 | XR_ITS ---
EXAMINATION: XR KNEE, RIGHT XR KNEE AP STANDING CLINICAL INFORMATION: Pain. COMPARISON: Prior radiographs, most recently 09/28/2016. TECHNIQUE: Lateral and axial views of the right knee were obtained. AP bilateral standing view of the knees was obtained. FINDINGS: No fracture or joint effusion. Alignment is anatomic. Joint spaces are maintained bilaterally. There is no significant varus or valgus configuration. No abnormal soft tissue calcification. XR/XR knee RT 2V IMPRESSION: Normal right knee radiographs an AP standing view of the bilateral knees.
== END 2023-02-20 08:28 | disposition home or self-care (01) ==
LOC: HO.HOSX 08:27
PROVIDERS: Visit Provider Physician Assistant
DX: M25.561 Pain in right knee (principal)
CPT/HCPCS: 73560; 73565; 99212

== ENCOUNTER 2023-04-09 12:09 | Outpatient (AMB) | payer OTHER, SELFPAY ==
[2023-04-09 12:28] VITALS: BMI 23.9
--- NOTE | 2023-04-09 12:28 | MHC.OFFVIS ---
Intake Vital Signs 04/09/23 12:28 Height 5 ft 6 in Weight 148 lb BMI 23.9 Intake Visit Reasons: ov-Pain of right patella Intake Note: Melly is a 33 year old female who presents today for a evaluation of her right knee pain. Patient reports that on 01/09/23 she was sitting with her legs folded under her, when she went to get up she felt a pop in the knee. History of right knee arthroscopy 05/02/15. She was given a True pull brace at her last appointment with [facility]. Patient would like an MRI Allergies divalproex sodium [From DEPAKOTE] Allergy (Intermediate, Verified 03/20/22 13:06) SEVERE HEADACHE adhesive tape [ADHESIVE TAPE] Allergy (Unknown, Verified 03/20/22 13:06) RASH lactose [LACTOSE] Allergy (Unknown, Verified 03/20/22 13:06) DIARRHEA morphine [MORPHINE] Allergy (Unknown, Verified 03/20/22 13:06) GI UPSET Adhesive Bandages Allergy (Unknown, Uncoded 03/20/22 13:06) Unknown HPI ov-Pain of right patella HPI Details Melly is a 33 year old woman who presents with complaints of right knee pain. She says she felt a painful popping sensation when standing from a seated position on 01/09/23. Since then she has had significant pain at the knee cap that radiates down the right leg, which is increased with WB activities. She found limited relief from bracing and wants to discuss an MRI. She has a hx of right knee on 05/02/15. Intraoperative findings of medial plica and otherwsie nl knee. 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 Resp Other: No audible wheezing Effort & Inspection: normal respiratory effort and able to speak in complete sentences Cardio Other: Radial pulse palpable with no rythmic abnormalities Jugular venous distension: no JVD Back/Spine/Pelvis Cervical Spine: normal cervical lordosis Skin General skin exam: turgor normal Rashes: no rashes Neuro General: patient oriented x3 Extrem Other: lateral retropatellar ttp Mild valgus and + j sign no effusion neg steinmen's no JLT Psych Appearance: grossly normal Mental Status: mental status grossly normal Speech and movement: Normal speech and movement present Affect: normal affect Attitude: cooperative Office Procedures Joint Injection/Drain Joint Injection/Drain Details: Injected 1 mL of Decadron and 3 mL 1% lidocaine and 3 mL of 0.25% Marcaine. Site was prepped using aseptic technique. Patient tolerated the procedure well. Primary Site: right knee Approach Used: anterolateral Coding - Large joint Procedure code (CPT) selection complete Assessment & Plan Assessment & Plan (1) Pain of right patella: Code(s): M25.561 - Pain in right knee Plan: Right knee pain with no evidence of internal derangement. I injected her knee and recommend regular exercise and avoidance of stairs/squats Plan Prepared for Romeo Valles MD by Eric Saucedo medical record librarian, on 04/09/23 at 12:37 PM, EST. Coding Level of Care Code Est Pt Level 3 (47180) Diagnoses Pain of right patella M25.561 CPT Codes Coding - Large joint: 88574 - Large joint ([id number])
== END 2023-04-09 13:12 | disposition home or self-care (01) ==
PROVIDERS: Visit Provider Orthopaedic Surgery
DX: M25.561 Pain in right knee (principal)
CPT/HCPCS: 20610; 99213

== ENCOUNTER → 2023-04-09 12:09 | Outpatient (BNVA) | payer OTHER, SELFPAY | PROVIDERS: Visit Provider Orthopaedic Surgery | DX: M25.561 Pain in right knee (principal) | CPT/HCPCS: 20610; 99212; J0665; J1100 ==

== ENCOUNTER 2023-05-23 01:17 | Emergency (ER) | payer OTHER, SELFPAY ==
[2023-05-23 01:22] VITALS: PULSE 104; O2SAT 98
[2023-05-23 01:26] VITALS: BP 103/59; PULSE 82; RESP 16; TEMP 36.9; O2SAT 98
[2023-05-23 01:30] VITALS: BMI 25.8
[2023-05-23 01:52] LABS: MANUAL DIFF FLAG NO
[2023-05-23 01:54] LABS: Basophils Percent Auto 0.3 % (0-2); Eosinophils Absolute Auto 0.1 X10*3/uL (0.0-0.4); Eosinophils Percent Auto 0.4 % (0-4); Hemoglobin 12.8 g/dl (12.0-16.0); Imm Gran Abs Auto 0.05 X10*3/uL (0.00-0.03); Imm Gran Pct Auto 0.4 % (0.0-0.4); Lymphocytes Absolute Auto 1.2 X10*3/uL (1.2-4.9); Lymphocytes Percent Auto 8.6 % (20-40); Mean Corpuscular HGB Conc 33.7 g/dl (31.0-35.0); Mean Corpuscular Hemoglobin 31.1 pg (27.0-33.0); Mean Corpuscular Volume 92.5 fL (80.0-98.0); Mean Platelet Volume 10.3 fL (9.4-12.3); Monocytes Absolute Auto 0.7 X10*3/uL (0.1-1.2); Monocytes Percent Auto 4.9 % (2-11); Neutrophils Absolute Auto 11.7 x10*3/uL (2.0-8.3); Neutrophils Percent Auto 85.4 % (45-73); Platelet Count 265 X10*3/uL (160-400); Red Blood Count 4.11 X10*6/uL (4.20-5.50); Red Cell Distribution Width 13.6 % (11.0-16.0); White Blood Count 13.8 X10*3/uL (4.8-10.8)
[2023-05-23 02:07] LABS: Alanine Aminotransferase 21 U/L (0-31); Albumin Level 3.9 g/dL (3.5-5.0); Alkaline Phosphatase 47 U/L (39-117); Anion Gap 11 (12-20); Aspartate Amino Transferase 18 U/L (5-31); Bilirubin Direct 0.1 mg/dL (0.0-0.5); Bilirubin Total 0.4 mg/dL (0.0-1.0); Blood Urea Nitrogen 12 mg/dL (9-16); Calcium 9.3 mg/dL (8.4-10.2); Carbon Dioxide 25 mmol/L (22-29); Chloride 108 mmol/L (96-108); Creatinine Clr Calc Pharmacy 105.9; Estimated Glomerular Filt Rate > 60; Glucose Random 96 mg/dL (60-115); Lipase 19 U/L (8-78); Potassium 3.6 mmol/L (3.3-5.1); Sodium 140 mmol/L (135-145); Total Protein 7.3 g/dL (6.5-8.0)
[2023-05-23 03:59] VITALS: BP 97/52; PULSE 83; RESP 16; TEMP 36.9; O2SAT 98
--- NOTE | 2023-05-23 04:36 | ED.NAVMDI ---
HPI - Nausea/Vomiting/Diarrhea General Chief complaint: Nausea/Vomiting/Diarrhea Stated complaint: chills and nausea Time Seen by Provider: 05/23/23 04:24 Source: patient Mode of arrival: ambulatory Limitations: no limitations History of Present Illness HPI Narrative: Patient comes to the emergency room complaining of almost 12 hours of generalized malaise, nausea vomiting, lower back pain. Patient states that she is under lot of stress, patient's grandmother a few days ago. Patient denies fever chills, no chest pain or shortness of breath. Related Data Previous Rx's ?Medication ?Instructions ?Recorded docusate sodium 100 mg capsule 100 mg PO BID PRN Constipation #14 02/06/22 (Colace) caps ondansetron HCl 4 mg tablet 4 mg PO Q8H #14 tabs 02/06/22 polyethylene glycol 3350 17 gram 17 g PO DAILY #14 ea 02/06/22 oral powder packet (Miralax) ketorolac 10 mg tablet 10 mg PO TID PRN pain 5 days #15 02/17/22 tabs metronidazole 500 mg tablet 500 mg PO BID 7 days #14 tabs 03/20/22 ondansetron 4 mg disintegrating 4 mg PO Q6H PRN nausea and 03/21/22 tablet vomiting #10 tabs acetaminophen 500 mg tablet 500 mg PO Q6H PRN fever or pain 06/02/22 (Tylenol Extra Strength) #14 tabs naproxen 500 mg tablet 500 mg PO BID PRN pain 10 days #20 06/02/22 tabs ondansetron 4 mg disintegrating 4 mg PO Q6H PRN nausea and 05/23/23 tablet vomiting #14 tabs Allergies Allergy/AdvReac Type Severity Reaction Status Date / Time divalproex sodium Allergy Intermediate SEVERE Verified 05/23/23 01:33 [From DEPAKOTE] HEADACHE adhesive tape [ADHESIVE TAPE] Allergy Unknown RASH Verified 05/23/23 01:33 lactose [LACTOSE] Allergy Unknown DIARRHEA Verified 05/23/23 01:33 morphine [MORPHINE] Allergy Unknown GI UPSET Verified 05/23/23 01:33 Adhesive Bandages Allergy Unknown Unknown Uncoded 05/23/23 01:33 Review of Systems Review of Systems: Constitutional : No Weight loss, No Fever, No Chills, No Night Sweats, No Fatigue, complaining of generalized malaise ENT/Mouth : No Hearing loss, No Ear Pain, No Nasal Congestion, No Sinus Pain, No Hoarseness, No sore throat, No Rhinorrhea, No Swallowing Difficulty Eyes: No Eye Pain, No Swelling, No Redness, No Foreign Body, No Discharge, No Vision Changes Cardiovascular : No Chest Pain, No SOB, No Dyspnea on Exertion, No Orthopnea, No Edema, No Palpitations Respiratory : No Cough, No Sputum, No Wheezing, No Smoke Exposure, No Dyspnea Gastrointestinal : Complaining of nausea and vomiting, No Diarrhea, No Constipation, No abdominal Pain, No Hematochezia, No Melena Genitourinary : no irregular bleeding, No Dysuria, No Urinary Frequency, No Hematuria, No Urinary Incontinence, No Urgency, No Flank Pain, No Urinary Flow Changes, No Hesitancy Musculoskeletal : No joint pain, No Myalgias, No Joint Swelling Skin : No Skin Lesions, No rash Neuro : No Weakness, No Numbness, No Paresthesias, No Loss of Consciousness, No Dizziness, No Headache Psych : No Anxiety/Panic, No Depression, No SI/HI/AH/VH, No Social Issues, Heme/Lymph: No Bruising, No Bleeding,No Lymphadenopathy Endocrine : No Polyuria, No Polydipsia, No Temperature Intolerance [facility] Past Medical History 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 Oriented X3. No acute distress. Eyes: Pupils equal, round and reactive to light. ENT: Pharynx normal. Neck: Normal inspection. Neck supple. No lymph nodes noted. No crepitus CVS: Normal heart rate and rhythm. Pulses normal. Normal S1 and S2 Respiratory: No respiratory distress. Breath sounds normal. No Wheezing. No rales Abdomen: Soft and nontender. No rigidity. No distention. Skin: Skin warm and dry. Normal skin color. Normal skin turgor. Extremities: No lower extremity edema. No Lacerations. No Rash Neuro: Oriented X 3. No motor deficit. No sensory deficit. Moving all extremities. No slurred speech. CN 2 through 12 grossly intact Psych: calm, cooperative, normal affect Course Course Course Narrative: -patient's physical exam is reassuring, no abdominal pain on deep palpation in any of the quadrants. -however, patient complaining of generalized malaise, feeling achy throughout. For symptomatic relief, patient getting fluids, Zofran and Toradol. -COVID and influenza tests negative, urinalysis has chronically trace leukocyte esterase, no UTI symptoms. U tox positive for marijuana -likely patient also has cyclical vomiting. -after IV fluid, patient feeling better. Medications Administered Discontinued Medications Generic Name Dose Route Start Last Admin Trade Name Freq PRN Reason Stop Dose Admin Sodium Chloride 1,000 mls @ 999 mls/hr 05/23/23 04:34 05/23/23 05:46 Ns IVCONT 05/23/23 05:34 999 mls/hr .Q1H1M ONE Administration Ketorolac Tromethamine 15 mg 05/23/23 04:34 05/23/23 05:47 Ketorolac Tromethamine 15 Mg/Ml Vial IVPUSH 05/23/23 04:35 15 mg ONCE ONE Administration Ondansetron HCl 4 mg 05/23/23 04:34 05/23/23 05:47 Ondansetron Hcl 4 Mg/2 Ml Vial IVPUSH 05/23/23 04:35 4 mg ONCE ONE Administration Medical Decision Making Medical Decision Making [facility] Narrative: -differential diagnosis: viral gastritis, gastroenteritis, cyclical vomiting -patient seemed to be dehydrated, admission was considered, after IV fluids patient looking and feeling much better. -my interpretation of labs: White blood cell count 13.8, likely reactive leukocytosis, chemistry within normal limits, LFTs normal, beta hCG negative Differential Diagnosis Differential Diagnoses: The differential diagnosis associated with the presentation includes Admission/Observation Consideration of admission/observation: Escalation of care including admission/observation considered Lab Data [facility] Lab Attestation statement: I reviewed the patient's lab results. 04/06/24 01:47 05/23/23 01:47 Labs: Lab Results 05/23/23 05/23/23 05/23/23 Range/Units 01:47 05:07 06:39 WBC 13.8 H (4.8-10.8) X10*3/uL RBC 4.11 L (4.20-5.50) X10*6/uL Hgb 12.8 (12.0-16.0) g/dl Hct 38.0 (37.0-47.0) % MCV 92.5 (80.0-98.0) fL MCH 31.1 (27.0-33.0) pg MCHC 33.7 (31.0-35.0) g/dl RDW 13.6 (11.0-16.0) % Plt Count 265 (160-400) X10*3/uL MPV 10.3 (9.4-12.3) fL Immature Gran % (Auto) 0.4 (0.0-0.4) % Neut % (Auto) 85.4 H (45-73) % Lymph % (Auto) 8.6 L (20-40) % [place] % (Auto) 4.9 (2-11) % Eos % (Auto) 0.4 (0-4) % Baso % (Auto) 0.3 (0-2) % Lymph # (Auto) 1.2 (1.2-4.9) X10*3/uL [place] # (Auto) 0.7 (0.1-1.2) X10*3/uL Eos # (Auto) 0.1 (0.0-0.4) X10*3/uL Baso # (Auto) 0.0 (0.0-0.2) X10*3/uL Abs Immat Gran (auto) 0.05 H (0.00-0.03) X10*3/uL Absolute Neuts (auto) 11.7 H (2.0-8.3) x10*3/uL Absolute Nucleated RBC 0.000 (0.0-0.012) X10*3/uL Nucleated RBC % (auto) 0.0 (0.0-0.2) /100WBC Sodium 140 (135-145) mmol/L Potassium 3.6 (3.3-5.1) mmol/L Chloride 108 (96-108) mmol/L Carbon Dioxide 25 (22-29) mmol/L Anion Gap 11 L (12-20) BUN 12 (9-16) mg/dL Creatinine 0.77 (0.5-1.4) mg/dL Estim Creat Clear Calc 105.9 Estimated GFR > 60 Random Glucose 96 (60-115) mg/dL Calcium 9.3 (8.4-10.2) mg/dL Total Bilirubin 0.4 (0.0-1.0) mg/dL Direct Bilirubin 0.1 (0.0-0.5) mg/dL AST 18 (5-31) U/L ALT 21 (0-31) U/L Alkaline Phosphatase 47 (39-117) U/L Total Protein 7.3 (6.5-8.0) g/dL Albumin 3.9 (3.5-5.0) g/dL Lipase 19 (8-78) U/L Beta HCG, Quant < 2 mIU/mL Urine Color Dark Yellow Urine Appearance Clear Urine pH 8.0 (5.0-9.0) Ur Specific [place] 1.025 (1.005-1.025) Urine Protein 30 (1+) H (Neg-Trace) mg/dL Urine Glucose (UA) Negative (Negative) mg/dL Urine Ketones Trace (Negative) mg/dL Urine Blood Negative (Negative) Urine Nitrite Negative (Negative) Ur Leukocyte Esterase Trace H (Negative) Urine RBC 0-2 (0-2) /HPF Urine WBC 0-5 (0-5) /HPF Ur Squamous Epith Cells 6-10 (0-2) /HPF Urine Bacteria 1+ (None Seen) Hyaline Casts 0-2 (0-2) /LPF Urine Test NEGATIVE (NEGATIVE) Urine Opiates Screen Not Detected (Not Detect) Urine Fentanyl Screen Not Detected (Not Detect) Ur Barbiturates Screen Not Detected (Not Detect) Ur Phencyclidine Scrn Not Detected (Not Detect) Ur Amphetamines Screen Not Detected (Not Detect) U Benzodiazepines Scrn Not Detected (Not Detect) Urine Cocaine Screen Not Detected (Not Detect) U Marijuana (THC) Screen POSITIVE H (Not Detect) COVID-19 (BETI) Negative (Negative) COVID-19 Clin Com See Note Influenza Type A (NICO) Negative (Negative) Influenza Type B (NICO) Negative (Negative) Influenza A & B Note See Note Critical Care Time Critical Care Time Critical Care Time: Yes Total Critical Care Time: 35 Attestation: I have personally provided critical care time. Time includes review of lab data, radiology results, discussion with consultants, and monitoring for potential decompensation. Intervention performed as documented. Discharge Plan Discharge Clinical Impression: Nausea & vomiting, Acute dehydration Patient Disposition: Home, Self-Care Instructions: Acute Nausea and Vomiting (ED) Additional Instructions: Please follow-up with your primary care physician tomorrow. If you have any worsening or new symptoms, please return to the emergency room or call 911 Prescriptions: New ondansetron 4 mg tablet,disintegrating 4 mg PO Q6H PRN (Reason: nausea and vomiting) Qty: 14 0RF No Action ondansetron HCl 4 mg tablet 4 mg PO Q8H Qty: 14 0RF docusate sodium [Colace] 100 mg capsule 100 mg PO BID PRN (Reason: Constipation) Qty: 14 0RF polyethylene glycol 3350 [Miralax] 17 gram powder in packet 17 g PO DAILY Qty: 14 0RF ketorolac 10 mg tablet 10 mg PO TID PRN (Reason: pain) 5 Days Qty: 15 0RF Rx Instructions: Tolerated IM in the department metronidazole 500 mg tablet 500 mg PO BID 7 Days Qty: 14 0RF ondansetron 4 mg tablet,disintegrating 4 mg PO Q6H PRN (Reason: nausea and vomiting) Qty: 10 0RF acetaminophen [Tylenol Extra Strength] 500 mg tablet 500 mg PO Q6H PRN (Reason: fever or pain) Qty: 14 0RF naproxen 500 mg tablet 500 mg PO BID PRN (Reason: pain) 10 Days Qty: 20 0RF Print Language: Lithuanian
[2023-05-23 04:47] LABS: HCG Quantitative < 2 mIU/mL
[2023-05-23 05:26] LABS: COVID-19 Test Negative (Negative); IDNOW Serial# 152EDE1D
[2023-05-23 05:28] LABS: IDNOW Serial# 08D9AD1C; Influenza A Negative (Negative); Influenza B2 Negative (Negative)
[2023-05-23] MEDS: 0.9 % Sodium Chloride 1,000 ML 999 ML IVCONT (05:46)
[2023-05-23] MEDS: ondansetron HCL 4 MG/2 ML VIAL IVPUSH (05:47)
[2023-05-23] MEDS: Ketorolac Tromethamine 15 MG/ML VIAL IVPUSH (05:47)
[2023-05-23 06:38] VITALS: BP 106/56; PULSE 62; RESP 16; TEMP 36.6; O2SAT 99
[2023-05-23 06:47] LABS: Appearance Urine Clear; Color Urine Dark Yellow; Glucose Urine UA Negative (Negative); Leukocyte Esterase Urine Trace (Negative); Nitrite Urine Negative (Negative); Specific Gravity - Urine 1.025 (1.005-1.025); UMIC TRIGGER UACC YES; Urine Blood Negative (Negative); Urine Ketones Trace mg/dL (Negative); Urine Protein 30 (1+) mg/dL (Neg-Trace)
[2023-05-23 06:48] LABS: UPreg QC Valid YES; Urine Pregnancy NEGATIVE (NEGATIVE)
[2023-05-23 06:53] LABS: Amphetamine Screen Urine Not Detected (Not Detect); Barbiturates, Urine Not Detected (Not Detect); Benzodiazepines Screen Urine Not Detected (Not Detect); Cannabinoid Screen Urine POSITIVE (Not Detect); Cocaine Screen Urine Not Detected (Not Detect); Fentanyl, urine Not Detected (Not Detect); Opiate Screen Urine Not Detected (Not Detect); Phencyclidine Screen Urine Not Detected (Not Detect)
[2023-05-23 06:55] LABS: Bacteria Urine 1+ (None Seen); Hyaline Casts Urine 0-2 /LPF (0-2); RBC Urine 0-2 /HPF (0-2); WBC Urine 0-5 /HPF (0-5)
--- NOTE | 2023-05-23 07:44 | PC.NURSE ---
assumed care of pt at 0700. pt a&o x4, calm, and cooperative. pt reporting nausea and 9/10 pain to BL flank. pt medicated with toradol by previous RN, sts no improvement. pt now sleeping soundly, in no apparent distress. rr even/unlabored. call workman within reach. plan of care ongoing.
[2023-05-23 07:57] VITALS: BP 111/52; PULSE 64; RESP 16; TEMP 36.8; O2SAT 100
== END 2023-05-23 07:58 | disposition home or self-care (01) ==
PROVIDERS: Emergency Provider Emergency Medicine
DX: R11.2 Nausea with vomiting, unspecified (principal); Z11.52 Encounter for screening for COVID-19; Z79.899 Other long term (current) drug therapy
CPT/HCPCS: 36415; 80048; 80076; 80307; 81001; 81025; 83690; 84702; 85025; 87502; 87635; 96374; 96375; 99284; J1885; J2405

== ENCOUNTER 2023-07-26 19:42 | Emergency (ER) | payer OTHER, SELFPAY ==
--- NOTE | 2023-07-26 | ECG_ITS ---
Test Reason : TACHYCARDIA Blood Pressure : / mmHG Vent. Rate : 123 BPM Atrial Rate : 123 BPM P-R Int : 128 ms QRS Dur : 082 ms QT Int : 328 ms P-R-T Axes : 019 -22 021 degrees QTc Int : 469 ms Sinus tachycardia Minimal voltage criteria for LVH, may be normal variant ( R in aVL ) Borderline ECG When compared with ECG of 21-OCT-2012 15:52, No significant change was found Referred By: Generic ED Physician Electronically Signed By:SUZANNE ZIMMERMAN
[2023-07-26 19:44] VITALS: BP 152/95; PULSE 130; O2SAT 98
[2023-07-26 20:33] VITALS: BP 107/87; PULSE 129; RESP 22; TEMP 36.5; O2SAT 99; BMI 25.3
[2023-07-26 21:28] LABS: MANUAL DIFF FLAG NO
[2023-07-26 21:29] LABS: Basophils Percent Auto 0.5 % (0-2); Eosinophils Absolute Auto 0.1 X10*3/uL (0.0-0.4); Eosinophils Percent Auto 0.6 % (0-4); Hematocrit 38.7 % (37.0-47.0); Hemoglobin 13.1 g/dl (12.0-16.0); Imm Gran Abs Auto 0.02 X10*3/uL (0.00-0.03); Imm Gran Pct Auto 0.2 % (0.0-0.4); Lymphocytes Absolute Auto 1.8 X10*3/uL (1.2-4.9); Lymphocytes Percent Auto 22.7 % (20-40); Mean Corpuscular HGB Conc 33.9 g/dl (31.0-35.0); Mean Corpuscular Hemoglobin 31.2 pg (27.0-33.0); Mean Corpuscular Volume 92.1 fL (80.0-98.0); Mean Platelet Volume 10.2 fL (9.4-12.3); Monocytes Absolute Auto 0.5 X10*3/uL (0.1-1.2); Monocytes Percent Auto 6.5 % (2-11); Neutrophils Absolute Auto 5.6 x10*3/uL (2.0-8.3); Neutrophils Percent Auto 69.5 % (45-73); Platelet Count 288 X10*3/uL (160-400); Red Cell Distribution Width 13.1 % (11.0-16.0)
[2023-07-26 21:43] LABS: Alanine Aminotransferase 14 U/L (0-31); Albumin Level 4.5 g/dL (3.5-5.0); Alkaline Phosphatase 49 U/L (39-117); Anion Gap 17 (12-20); Aspartate Amino Transferase 17 U/L (5-31); Bilirubin Total 0.3 mg/dL (0.0-1.0); Blood Urea Nitrogen 18 mg/dL (9-16); Calcium 10.3 mg/dL (8.4-10.2); Carbon Dioxide 24 mmol/L (22-29); Chloride 101 mmol/L (96-108); Creatinine Clr Calc Pharmacy 79.3; Estimated Glomerular Filt Rate > 60; Glucose Random 113 mg/dL (60-115); Lipase 17 U/L (8-78); Potassium 3.9 mmol/L (3.3-5.1); Sodium 138 mmol/L (135-145); Total Protein 7.9 g/dL (6.5-8.0)
== END 2023-07-27 00:12 | disposition left against medical advice (07) ==
LOC: HO.ED 23:41
PROVIDERS: Emergency Provider Emergency Medicine
DX: R25.1 Tremor, unspecified (principal)
CPT/HCPCS: 36415; 80053; 83690; 83735; 85025; 93005; 99283

== ENCOUNTER → 2023-07-26 21:06 | Outpatient (BNV) | payer OTHER, SELFPAY | PROVIDERS: Emergency Provider Emergency Medicine; Visit Provider Internal Medicine | DX: R00.0 Tachycardia, unspecified (principal) | CPT/HCPCS: 93010 ==

== ENCOUNTER 2024-03-15 09:18 | Emergency (ER) | payer OTHER, SELFPAY ==
[2024-03-15 09:26] VITALS: BP 131/88; PULSE 79; RESP 18; TEMP 36.8; O2SAT 100; BMI 26.3
[2024-03-15 09:41] LABS: MANUAL DIFF FLAG NO
[2024-03-15 09:43] LABS: Basophils Percent Auto 0.5 % (0-2); Eosinophils Absolute Auto 0.3 X10*3/uL (0.0-0.4); Eosinophils Percent Auto 4.6 % (0-4); Hematocrit 39.3 % (37.0-47.0); Imm Gran Abs Auto 0.03 X10*3/uL (0.00-0.03); Imm Gran Pct Auto 0.4 % (0.0-0.4); Lymphocytes Absolute Auto 1.5 X10*3/uL (1.2-4.9); Lymphocytes Percent Auto 19.9 % (20-40); Mean Corpuscular HGB Conc 33.1 g/dl (31.0-35.0); Mean Corpuscular Volume 93.8 fL (80.0-98.0); Mean Platelet Volume 9.6 fL (9.4-12.3); Monocytes Absolute Auto 0.5 X10*3/uL (0.1-1.2); Monocytes Percent Auto 7.1 % (2-11); Neutrophils Absolute Auto 4.9 x10*3/uL (2.0-8.3); Neutrophils Percent Auto 67.5 % (45-73); Platelet Count 279 X10*3/uL (160-400); Red Blood Count 4.19 X10*6/uL (4.20-5.50); Red Cell Distribution Width 13.1 % (11.0-16.0); White Blood Count 7.3 X10*3/uL (4.8-10.8)
[2024-03-15 10:10] LABS: Alanine Aminotransferase 15 U/L (0-31); Albumin Level 4.2 g/dL (3.5-5.0); Alkaline Phosphatase 42 U/L (39-117); Anion Gap 9 (12-20); Aspartate Amino Transferase 17 U/L (5-31); Bilirubin Total 0.4 mg/dL (0.0-1.0); Blood Urea Nitrogen 12 mg/dL (9-16); Calcium 8.7 mg/dL (8.4-10.2); Carbon Dioxide 24 mmol/L (22-29); Chloride 108 mmol/L (96-108); Creatinine Clr Calc Pharmacy 119.9; Estimated Glomerular Filt Rate > 60; Glucose Random 92 mg/dL (60-115); Potassium 3.6 mmol/L (3.3-5.1); Sodium 137 mmol/L (135-145); Total Protein 7.6 g/dL (6.5-8.0)
[2024-03-15 10:26] LABS: HCG Quantitative 18388 mIU/mL
--- NOTE | 2024-03-15 11:18 | ED_ITS ---
HPI - Nausea/Vomiting/Diarrhea General Chief complaint: Nausea/Vomiting/Diarrhea Stated complaint: Lower abd pain, nausea Time Seen by Provider: 03/15/24 11:08 Source: patient Mode of arrival: ambulatory Limitations: no limitations History of Present Illness ED Provider: Dr. Imelda Kellogg HPI Narrative: Patient comes to the emergency room stating that she is late for her menstrual period, she is 7 days late. Also, patient states that she has been very nauseous, patient states that her abdomen is kind of stretchy, patient states that she has been vomiting, no diarrhea. Very nauseous. patient denies cramping, denies vaginal fluid leakage or spotting. Related Data Previous Rx's ?Medication ?Instructions ?Recorded docusate sodium 100 mg capsule 100 mg PO BID PRN Constipation #14 02/06/22 (Colace) caps ondansetron HCl 4 mg tablet 4 mg PO Q8H #14 tabs 02/06/22 polyethylene glycol 3350 17 gram 17 g PO DAILY #14 ea 02/06/22 oral powder packet (Miralax) ketorolac 10 mg tablet 10 mg PO TID PRN pain 5 days #15 02/17/22 tabs metronidazole 500 mg tablet 500 mg PO BID 7 days #14 tabs 03/20/22 ondansetron 4 mg disintegrating 4 mg PO Q6H PRN nausea and 03/21/22 tablet vomiting #10 tabs acetaminophen 500 mg tablet 500 mg PO Q6H PRN fever or pain 06/02/22 (Tylenol Extra Strength) #14 tabs naproxen 500 mg tablet 500 mg PO BID PRN pain 10 days #20 06/02/22 tabs ondansetron 4 mg disintegrating 4 mg PO Q6H PRN nausea and 05/23/23 tablet vomiting #14 tabs doxylamine 10 mg-pyridoxine (vit 1 tab PO BID #30 tabs 03/15/24 B6) 10 mg tablet,delayed release [id number] 120 mcg-dha 25 1 tab PO DAILY #90 tabs 03/15/24 mg-herb no.293 66.7 mg chew tablet (Alive Premium ) Allergies Allergy/AdvReac Type Severity Reaction Status Date / Time divalproex sodium Allergy Intermediate SEVERE Verified 03/15/24 09:29 [From DEPAKOTE] HEADACHE adhesive tape [ADHESIVE TAPE] Allergy Unknown RASH Verified 03/15/24 09:29 lactose [LACTOSE] Allergy Unknown DIARRHEA Verified 03/15/24 09:29 morphine [MORPHINE] AdvReac Unknown GI UPSET Verified 03/15/24 09:29 Adhesive Bandages Allergy Unknown Unknown Uncoded 03/15/24 09:29 Review of Systems 2 Review of Systems: Constitutional : No Weight loss, No Fever, No Chills, No Night Sweats, No Fatigue, No Malaise ENT/Mouth : No Hearing loss, No Ear Pain, No Nasal Congestion, No Sinus Pain, No Hoarseness, No sore throat, No Rhinorrhea, No Swallowing Difficulty Eyes: No Eye Pain, No Swelling, No Redness, No Foreign Body, No Discharge, No Vision Changes Cardiovascular : No Chest Pain, No SOB, No Dyspnea on Exertion, No Orthopnea, No Edema, No Palpitations Respiratory : No Cough, No Sputum, No Wheezing, No Smoke Exposure, No Dyspnea Gastrointestinal : Complaining of nausea and vomiting, No Diarrhea, No Constipation, complaining of abdominal stretching sensation, No abdominal Pain, No Hematochezia, No Melena Genitourinary : no irregular bleeding, No Dysuria, No Urinary Frequency, No Hematuria, No Urinary Incontinence, No Urgency, No Flank Pain, No Urinary Flow Changes, No Hesitancy Musculoskeletal : No joint pain, No Myalgias, No Joint Swelling Skin : No Skin Lesions, No rash Neuro : No Weakness, No Numbness, No Paresthesias, No Loss of Consciousness, No Dizziness, No Headache Psych : No Anxiety/Panic, No Depression, No SI/HI/AH/VH, No Social Issues, Heme/Lymph: No Bruising, No Bleeding,No Lymphadenopathy Endocrine : No Polyuria, No Polydipsia, No Temperature Intolerance [facility] Past Medical History 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 Oriented X3. No acute distress. Well-appearing Eyes: Pupils equal, round and reactive to light. ENT: Pharynx normal. Neck: Normal inspection. Neck supple. No lymph nodes noted. No crepitus CVS: Normal heart rate and rhythm. Pulses normal. Normal S1 and S2 Respiratory: No respiratory distress. Breath sounds normal. No Wheezing. No rales Abdomen: Soft and nontender. No rigidity. No distention. Skin: Skin warm and dry. Normal skin color. Normal skin turgor. Extremities: No lower extremity edema. No Lacerations. No Rash Neuro: Oriented X 3. No motor deficit. No sensory deficit. Moving all extremities. No slurred speech. CN 2 through 12 grossly intact Psych: calm, cooperative, normal affect Medical Decision Making Medical Decision Making [facility] Narrative: My interpretation of labs: No significant abnormality in patient's hematology and chemistry. However, test is positive, beta hCG today is 18,388 On physical exam, patient did not have any abdominal tenderness at all. Patient states that because she has been vomiting so much she has been using a lot of marijuana. I discussed with the patient that THC can cause difficulties in including growth restriction. Patient states that this is her 2nd , she was able to quit smoking marijuana for her 1st and is willing to stopped smoking. On physical exam, patient is well-appearing, has no abdominal pain on palpation, overall patient complaining of abdominal pain other than stretching sensation. Ectopic is not suspected Overall, patient is happy with the news over her . Patient states that overall this is her 2nd . Patient had a previously. Urinalysis negative for UTI, your tox positive for THC. Patient states that now that she is aware that she is , she will stop using THC Differential Diagnosis Differential Diagnoses: The differential diagnosis associated with the presentation includes (Viral URI, ) Lab Data [facility] Lab Attestation statement: I reviewed the patient's lab results. 03/15/24 09:37 03/15/24 09:37 Labs: Lab Results 03/15/24 03/15/24 Range/Units 09:37 11:31 WBC 7.3 (4.8-10.8) X10*3/uL RBC 4.19 L (4.20-5.50) X10*6/uL Hgb 13.0 (12.0-16.0) g/dl Hct 39.3 (37.0-47.0) % MCV 93.8 (80.0-98.0) fL MCH 31.0 (27.0-33.0) pg MCHC 33.1 (31.0-35.0) g/dl RDW 13.1 (11.0-16.0) % Plt Count 279 (160-400) X10*3/uL MPV 9.6 (9.4-12.3) fL Immature Gran % (Auto) 0.4 (0.0-0.4) % Neut % (Auto) 67.5 (45-73) % Lymph % (Auto) 19.9 L (20-40) % Morgan % (Auto) 7.1 (2-11) % Eos % (Auto) 4.6 H (0-4) % Baso % (Auto) 0.5 (0-2) % Lymph # (Auto) 1.5 (1.2-4.9) X10*3/uL Morgan # (Auto) 0.5 (0.1-1.2) X10*3/uL Eos # (Auto) 0.3 (0.0-0.4) X10*3/uL Baso # (Auto) 0.0 (0.0-0.2) X10*3/uL Abs Immat Gran (auto) 0.03 (0.00-0.03) X10*3/uL Absolute Neuts (auto) 4.9 (2.0-8.3) x10*3/uL Absolute Nucleated RBC 0.000 (0.0-0.012) X10*3/uL Nucleated RBC % (auto) 0.0 (0.0-0.2) /100WBC Sodium 137 (135-145) mmol/L Potassium 3.6 (3.3-5.1) mmol/L Chloride 108 (96-108) mmol/L Carbon Dioxide 24 (22-29) mmol/L Anion Gap 9 L (12-20) BUN 12 (9-16) mg/dL Creatinine 0.68 (0.5-1.4) mg/dL Estim Creat Clear Calc 119.9 Estimated GFR > 60 Random Glucose 92 (60-115) mg/dL Calcium 8.7 D (8.4-10.2) mg/dL Total Bilirubin 0.4 (0.0-1.0) mg/dL AST 17 (5-31) U/L ALT 15 (0-31) U/L Alkaline Phosphatase 42 (39-117) U/L Total Protein 7.6 (6.5-8.0) g/dL Albumin 4.2 (3.5-5.0) g/dL Beta HCG, Quant 66390 mIU/mL Urine Color Yellow Urine Appearance Cloudy Urine pH 6.0 (5.0-9.0) Ur Specific [place] 1.020 (1.005-1.025) Urine Protein Negative (Neg-Trace) mg/dL Urine Glucose (UA) Negative (Negative) mg/dL Urine Ketones Negative (Negative) mg/dL Urine Blood Negative (Negative) Urine Nitrite Negative (Negative) Ur Leukocyte Esterase Negative (Negative) Urine Opiates Screen Not Detected (Not Detect) Ur Buprenorphine Scrn Not Detected (Not Detect) ng/mL Ur Oxycodone Screen Not Detected (Not Detect) ng/mL Urine Methadone Screen Not Detected (Not Detect) ng/mL Urine Fentanyl Screen Not Detected (Not Detect) Ur Barbiturates Screen Not Detected (Not Detect) Ur Phencyclidine Scrn Not Detected (Not Detect) Ur Amphetamines Screen Not Detected (Not Detect) U Benzodiazepines Scrn Not Detected (Not Detect) Urine Cocaine Screen Not Detected (Not Detect) U Marijuana (THC) Screen POSITIVE H (Not Detect) Discharge Plan Discharge Clinical Impression: Positive blood test, Nausea & vomiting Patient Disposition: Home, Self-Care Instructions: (ED), Acute Nausea and Vomiting (ED) Additional Instructions: Please follow-up with your primary care physician tomorrow. If you have any worsening or new symptoms, please return to the emergency room or call 911 Prescriptions: New doxylamine-pyridoxine (vit B6) 10-10 mg tablet,delayed release (DR/EC) 1 tab PO BID Qty: 30 0RF Alive Premium 120 mcg-25 mg- 66.7 mg tablet,chewable 1 tab PO DAILY Qty: 90 0RF No Action ondansetron HCl 4 mg tablet 4 mg PO Q8H Qty: 14 0RF docusate sodium [Colace] 100 mg capsule 100 mg PO BID PRN (Reason: Constipation) Qty: 14 0RF polyethylene glycol 3350 [Miralax] 17 gram powder in packet 17 g PO DAILY Qty: 14 0RF ketorolac 10 mg tablet 10 mg PO TID PRN (Reason: pain) 5 Days Qty: 15 0RF Rx Instructions: Tolerated IM in the department metronidazole 500 mg tablet 500 mg PO BID 7 Days Qty: 14 0RF ondansetron 4 mg tablet,disintegrating 4 mg PO Q6H PRN (Reason: nausea and vomiting) Qty: 10 0RF acetaminophen [Tylenol Extra Strength] 500 mg tablet 500 mg PO Q6H PRN (Reason: fever or pain) Qty: 14 0RF naproxen 500 mg tablet 500 mg PO BID PRN (Reason: pain) 10 Days Qty: 20 0RF ondansetron 4 mg tablet,disintegrating 4 mg PO Q6H PRN (Reason: nausea and vomiting) Qty: 14 0RF Referrals: Pratik Figueroa MD [Physician] - 1 day Print Language: Latvian
[2024-03-15 11:39] LABS: Appearance Urine Cloudy; Color Urine Yellow; Glucose Urine UA Negative (Negative); Leukocyte Esterase Urine Negative (Negative); Nitrite Urine Negative (Negative); Urine Blood Negative (Negative); Urine Ketones Negative (Negative); Urine Protein Negative (Neg-Trace)
[2024-03-15 11:48] LABS: Amphetamine Screen Urine Not Detected (Not Detect); Barbiturates, Urine Not Detected (Not Detect); Benzodiazepines Screen Urine Not Detected (Not Detect); Buprenorphine Scr Not Detected (Not Detect); Cannabinoid Screen Urine POSITIVE (Not Detect); Cocaine Screen Urine Not Detected (Not Detect); Fentanyl, urine Not Detected (Not Detect); Methadone Screen, Urine Not Detected (Not Detect); Opiate Screen Urine Not Detected (Not Detect); Oxycodone Screen Urine Not Detected (Not Detect); Phencyclidine Screen Urine Not Detected (Not Detect)
[2024-03-15 12:37] VITALS: BP 134/80; PULSE 78; RESP 16; TEMP 36.9; O2SAT 100
== END 2024-03-15 12:38 | disposition home or self-care (01) ==
PROVIDERS: Emergency Provider Emergency Medicine
DX: O21.8 Other vomiting complicating pregnancy (principal); O99.321 Drug use complicating pregnancy, first trimester; F12.90 Cannabis use, unspecified, uncomplicated; Z3A.01 Less than 8 weeks gestation of pregnancy
CPT/HCPCS: 36415; 80053; 80307; 81003; 84702; 85025; 99283